=== PATIENT | female | born 1965 | race Caucasian/White ===

== ENCOUNTER 2019-12-22 16:22 | Outpatient (REF) | payer OTHER, SELFPAY | END 2019-12-22 16:23 | disposition home or self-care (01) | LOC: HO.LNP 16:22 | PROVIDERS: Visit Provider Internal Medicine | DX: Z20.828 Contact with and (suspected) exposure to other viral communicable diseases (principal) | CPT/HCPCS: U0003 ==

== ENCOUNTER 2021-05-05 16:10 | Outpatient (REF) | payer OTHER, SELFPAY ==
--- NOTE | ~2021-05-05 | MM_ITS ---
EXAMINATION: MM SCREENING DIGITAL BREAST TOMOSYNTHESIS, BILATERAL CLINICAL INFORMATION: Screening. Asymptomatic. The lifetime risk of breast cancer based on the Tyrer-Cuzick Model is 25.6%. Additional annual screening with breast MRI may be of benefit in women with a score of 20% or greater. COMPARISON: Mammography: April 26, 2019 and studies dating back to August 07, 2008 TECHNIQUE: Digital breast tomosynthesis is performed in both the craniocaudal and mediolateral oblique views along with computer-aided detection (CAD). Synthesized 2D images are generated from the tomosynthesis. FINDINGS: There are scattered areas of fibroglandular density (ACR BI-RADS breast composition Category b). There are no significant masses, abnormal calcifications, or other abnormalities. MM/MM tomosynthesis screening BI IMPRESSION: There are no significant changes from prior study. ASSESSMENT: BI-RADS 1: Negative RECOMMENDATION: Routine annual mammography screening. This patient's information was entered into a reminder system with a target due date for their next mammogram.
== END 2021-05-05 16:11 | disposition home or self-care (01) ==
LOC: HO.MAMMO 16:10
PROVIDERS: Visit Provider Physician Assistant
DX: Z12.31 Encounter for screening mammogram for malignant neoplasm of breast (principal)
CPT/HCPCS: 77063; 77067

== ENCOUNTER 2022-04-30 15:30 | Outpatient (RCR) | payer OTHER, SELFPAY ==
--- NOTE | 2022-01-14 21:07 | P.CONTMS_ITS ---
History of Present Illness General Data Date of Service: 01/14/22 Reason for consult: [facility] History of Present Illness Patient is a 56-year-old female history of recurrent depression referred for retreatment with TMS. Current PHQ-9 19. Patient has treatment resistant depression she sees Dr. Zamora in individual counseling through the [facility] and Dr. Escoto at the [facility]. 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. She works on the TBI unit 20 mg daily levothyroxine 100 mcg daily atenolol 50 mg daily aspirin 81 mg a day. Patient noted for the original treatment or motivation energy crease pleasure feeling more alive. She notes recently more anxiety dysphoria feeling stressed overwhelmed difficulty functioning except for going to work. Patient currently on Trintellix 20 mg daily levothyroxine 100 mcg daily atenolol 50 mg daily the patient has a history of fibromyalgia hypothyroidism generalized anxiety disorder recurrent depression history of paroxysmal atrial fibrillation Past Psychiatric History/Medication Trials: History of multiple failures including antidepressants antipsychotics FOR[facility]LY [facility], [facility] Medical History (Updated 05/18/21 @ 17:27 by Power Finley MD) Generalized anxiety disorder Hypothyroidism Paroxysmal A-fib Family History: Who history of recurrent depression on her mother's side of family sister with bipolar disorder Social History: Patient is x2 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 does have some close friends Substance History: Intermittent heavy alcohol use no blackouts Trauma History: none noted Meds/Allergies Allergies Allergies Allergy/AdvReac Type Severity Reaction Status Date / Time No Known Allergies Allergy Unverified 11/02/19 15:09 [No Known Allergies*] Mental Status Exam Mental Status Exam Patient Appearance: Well Grooomed Patient Orientation: Person, Place and Situation Level of Consciousness: Awake Patient Behavior: Appropriate and Cooperative Mood Description: Depressed, Anxious and Apprehensive Affect Description: Depressed and Anxious Patient Cognition Impaired: No Ability to Follow Directions: Excellent Speech Pattern: Clear Memory Description: Intact Hallucinations: None Thought Process: Intact Thought Content: negative for Suicidal Ideation or negative for Homicidal Ideati on Depressive Symptoms: Increased Anxiety, Loss of Int. in Activity, Feelings of Worthlessness, Increased Fatigue, Loss of Energy and Difficulty Concentrating Judgement: Good Assessment & Plan Assessment & Plan (1) Depression, major, severe recurrence: Status: Acute Code(s): F33.2 - Major depressive disorder, recurrent severe without psychotic features (2) Generalized anxiety disorder: Status: Acute Code(s): F41.1 - Generalized anxiety disorder Plan The patient has a history of treatment resistant depression mood anxious and dysphoric had an excellent response to original course of TMS treatment without any significant side effects. No contraindications TMS new pacemaker metallic objects the patient would benefit from retreatment I spent __45____ minutes with the patient and/or on the patient floor today, greater than?50% of which was spent counseling/coordinating care.
--- NOTE | 2022-01-21 13:05 | HO.TMSDAILY2 ---
TMS Daily Progress Note Daily TMS Progress Note Date of Service: 01/21/22 Week #: 1 Treatment #(03-16): 1 PHQ-9 Pre-Treatment (03-13): 19 PHQ-9 Most Recent (03-13): 19 Reviewed: TMS Mapping/Re-mapping completed Verification: I have reviewed the TMS Jd Edwards Developer Note and agree with the contents. The patient remains a candidate to continue TMS treatment per protocol. Assessment and Plan (1) Depression, major, severe recurrence: Status: Acute (2) Generalized anxiety disorder: Status: Acute Plan Patient cooperative initial mapping completed no significant difficulty noted risks benefits alternatives have been reviewed informed consent obtained
--- NOTE | 2022-02-19 14:21 | HO.TMSDAILY2 ---
TMS Daily Progress Note Daily TMS Progress Note Date of Service: 01/22/22 Week #: 1 Treatment #(03-16): 2 PHQ-9 Pre-Treatment (03-13): 19 PHQ-9 Most Recent (03-13): 19 Reviewed: TMS Tech Note Reviewed Verification: I have reviewed the TMS Drug Safety Coordinator Note and agree with the contents. The patient remains a candidate to continue TMS treatment per protocol. Assessment and Plan (1) Depression, major, severe recurrence: Status: Acute (2) Generalized anxiety disorder: Status: Acute Plan tx completed Time Spent With Patient Time: Total time managing care of this patient today ____ minutes.
--- NOTE | 2022-02-19 14:29 | HO.TMSDAILY2 ---
TMS Daily Progress Note Daily TMS Progress Note Date of Service: 01/23/22 Week #: 1 Treatment #(03-16): 3 PHQ-9 Pre-Treatment (03-13): 19 PHQ-9 Most Recent (03-13): 19 Reviewed: TMS Tech Note Reviewed Verification: I have reviewed the TMS Air Conditioning Specialist Note and agree with the contents. The patient remains a candidate to continue TMS treatment per protocol. Assessment and Plan Time Spent With Patient Time: Total time managing care of this patient today ____ minutes.
--- NOTE | 2022-02-19 14:32 | HO.TMSDAILY2 ---
TMS Daily Progress Note Daily TMS Progress Note Date of Service: 01/26/22 Week #: 1 Treatment #(03-16): 4 PHQ-9 Pre-Treatment (03-13): 19 PHQ-9 Most Recent (03-13): 19 Reviewed: TMS Tech Note Reviewed Verification: I have reviewed the TMS Rock Crusher Operator Note and agree with the contents. The patient remains a candidate to continue TMS treatment per protocol. Assessment and Plan Time Spent With Patient Time: Total time managing care of this patient today ____ minutes.
--- NOTE | 2022-02-19 14:34 | P.PNPS_ITS ---
TMS Daily Progress Note Daily TMS Progress Note Date of Service: 01/27/22 Week #: 1 Treatment #(03-16): 5 PHQ-9 Pre-Treatment (03-13): 19 PHQ-9 Most Recent (03-13): 19 Reviewed: TMS Tech Note Reviewed Verification: I have reviewed the TMS Chemical Engineering Professor Note and agree with the contents. The patient remains a candidate to continue TMS treatment per protocol. Assessment and Plan (1) Depression, major, severe recurrence: Status: Acute (2) Generalized anxiety disorder: Status: Acute Plan tolerating well Time Spent With Patient Time: Total time managing care of this patient today ____ minutes.
--- NOTE | 2022-02-19 14:36 | P.PNPS_ITS ---
TMS Daily Progress Note Daily TMS Progress Note Date of Service: 01/28/22 Week #: 2 Treatment #(03-16): 6 PHQ-9 Pre-Treatment (03-13): 19 PHQ-9 Most Recent (03-13): 19 Reviewed: TMS Tech Note Reviewed Verification: I have reviewed the TMS Heel Cover Splitter Note and agree with the contents. The patient remains a candidate to continue TMS treatment per protocol. Assessment and Plan Time Spent With Patient Time: Total time managing care of this patient today ____ minutes.
--- NOTE | 2022-02-19 14:37 | HO.TMSDAILY2 ---
TMS Daily Progress Note Daily TMS Progress Note Date of Service: 01/30/22 Week #: 2 Treatment #(03-16): 7 PHQ-9 Pre-Treatment (03-13): 19 PHQ-9 Most Recent (03-13): 19 Reviewed: TMS Tech Note Reviewed Verification: I have reviewed the TMS Conveyor System Dispatcher Note and agree with the contents. The patient remains a candidate to continue TMS treatment per protocol. Assessment and Plan (1) Depression, major, severe recurrence: Status: Acute (2) Generalized anxiety disorder: Status: Acute Plan cont tx plan Time Spent With Patient Time: Total time managing care of this patient today ____ minutes.
--- NOTE | 2022-02-19 14:38 | HO.TMSDAILY2 ---
TMS Daily Progress Note Daily TMS Progress Note Date of Service: 01/30/22 Week #: 2 Treatment #(03-16): 7 PHQ-9 Pre-Treatment (03-13): 19 PHQ-9 Most Recent (03-13): 19 Reviewed: TMS Tech Note Reviewed Verification: I have reviewed the TMS Deep Fat Fry Cook Note and agree with the contents. The patient remains a candidate to continue TMS treatment per protocol. Assessment and Plan Time Spent With Patient Time: Total time managing care of this patient today ____ minutes.
--- NOTE | 2022-02-19 14:41 | P.PNPS_ITS ---
TMS Daily Progress Note Daily TMS Progress Note Date of Service: 02/04/22 Week #: 2 Treatment #(03-16): 9 PHQ-9 Pre-Treatment (03-13): 19 PHQ-9 Most Recent (03-13): 19 Reviewed: TMS Tech Note Reviewed Verification: I have reviewed the TMS Academic Department Chair Note and agree with the contents. The patient remains a candidate to continue TMS treatment per protocol. Assessment and Plan (1) Depression, major, severe recurrence: Status: Acute (2) Generalized anxiety disorder: Status: Acute Plan cont tx plan Time Spent With Patient Time: Total time managing care of this patient today ____ minutes.
--- NOTE | 2022-02-19 14:43 | P.PNPS_ITS ---
TMS Daily Progress Note Daily TMS Progress Note Date of Service: 02/04/22 Week #: 2 Treatment #(03-16): 9 PHQ-9 Pre-Treatment (03-13): 19 PHQ-9 Most Recent (03-13): 19 Reviewed: TMS Tech Note Reviewed Verification: I have reviewed the TMS Physician Representative Note and agree with the contents. The patient remains a candidate to continue TMS treatment per protocol. Assessment and Plan Time Spent With Patient Time: Total time managing care of this patient today ____ minutes.
--- NOTE | 2022-02-19 14:44 | HO.TMSDAILY2 ---
TMS Daily Progress Note Daily TMS Progress Note Date of Service: 02/05/22 Week #: 2 Treatment #(03-16): 10 PHQ-9 Pre-Treatment (03-13): 19 PHQ-9 Most Recent (03-13): 19 Reviewed: TMS Tech Note Reviewed Verification: I have reviewed the TMS Back Roll Lathe Operator Note and agree with the contents. The patient remains a candidate to continue TMS treatment per protocol. Assessment and Plan (1) Depression, major, severe recurrence: Status: Acute (2) Generalized anxiety disorder: Status: Acute Plan Tolerating well continue plan of care Time Spent With Patient Time: Total time managing care of this patient today ____ minutes.
--- NOTE | 2022-02-19 14:49 | P.PNPS_ITS ---
TMS Daily Progress Note Daily TMS Progress Note Date of Service: 02/06/22 Week #: 3 Treatment #(03-16): 11 PHQ-9 Pre-Treatment (03-13): 19 PHQ-9 Most Recent (03-13): 15 Reviewed: TMS Tech Note Reviewed Verification: I have reviewed the TMS Apprentice Painter Neckties Note and agree with the contents. The patient remains a candidate to continue TMS treatment per protocol. Assessment and Plan (1) Depression, major, severe recurrence: Status: Acute (2) Generalized anxiety disorder: Status: Acute Plan Tolerating well continue plan of care Time Spent With Patient Time: Total time managing care of this patient today ____ minutes.
--- NOTE | 2022-02-19 14:51 | HO.TMSDAILY2 ---
TMS Daily Progress Note Daily TMS Progress Note Date of Service: 02/10/22 Week #: 3 Treatment #(03-16): 12 PHQ-9 Pre-Treatment (03-13): 19 PHQ-9 Most Recent (03-13): 15 Reviewed: TMS Tech Note Reviewed Verification: I have reviewed the TMS Industrial Methods Consultant Note and agree with the contents. The patient remains a candidate to continue TMS treatment per protocol. Assessment and Plan (1) Depression, major, severe recurrence: Status: Acute (2) Generalized anxiety disorder: Status: Acute Plan Tolerating well continue plan of care Time Spent With Patient Time: Total time managing care of this patient today ____ minutes.
--- NOTE | 2022-02-26 10:21 | P.PNPS_ITS ---
TMS Daily Progress Note Daily TMS Progress Note Date of Service: 02/12/22 Week #: 3 Treatment #(03-16): 13 PHQ-9 Pre-Treatment (03-13): 19 PHQ-9 Most Recent (03-13): 15 Reviewed: TMS Tech Note Reviewed Verification: I have reviewed the TMS Company Laundry Worker Note and agree with the contents. The patient remains a candidate to continue TMS treatment per protocol.Pt talkative engaged Assessment and Plan (1) Depression, major, severe recurrence: Status: Acute (2) Generalized anxiety disorder: Status: Acute Plan Tolerating well continue plan of care engaged with tx Time Spent With Patient Time: Total time managing care of this patient today ____ minutes.
--- NOTE | 2022-02-26 10:33 | P.PNPS_ITS ---
TMS Daily Progress Note Daily TMS Progress Note Date of Service: 02/13/22 Week #: 3 Treatment #(03-16): 14 PHQ-9 Pre-Treatment (03-13): 19 PHQ-9 Most Recent (03-13): 11 Reviewed: TMS Tech Note Reviewed Verification: I have reviewed the TMS Buzzsaw Operator Helper Note and agree with the contents. The patient remains a candidate to continue TMS treatment per protocol. Assessment and Plan (1) Depression, major, severe recurrence: Status: Acute (2) Generalized anxiety disorder: Status: Acute Plan Tolerating well continue plan of care engaged with tx some increased anxiety may be related to medical illness with uncle Time Spent With Patient Time: Total time managing care of this patient today ____ minutes.
--- NOTE | 2022-02-26 10:40 | P.PNPS_ITS ---
TMS Daily Progress Note Daily TMS Progress Note Date of Service: 02/17/22 Week #: 3 Treatment #(03-16): 15 PHQ-9 Pre-Treatment (03-13): 19 PHQ-9 Most Recent (03-13): 11 Reviewed: TMS Tech Note Reviewed Verification: I have reviewed the TMS Courseware Developer Note and agree with the contents. The patient remains a candidate to continue TMS treatment per protocol. Assessment and Plan (1) Depression, major, severe recurrence: Status: Acute (2) Generalized anxiety disorder: Status: Acute Plan Patient feeling under lot of stress number of situational factors Time Spent With Patient Time: Total time managing care of this patient today ____ minutes.
--- NOTE | 2022-02-26 10:53 | HO.TMSDAILY2 ---
TMS Daily Progress Note Daily TMS Progress Note Date of Service: 02/18/22 Week #: 4 Treatment #(03-16): 16 PHQ-9 Pre-Treatment (03-13): 19 PHQ-9 Most Recent (03-13): 16 Reviewed: TMS Tech Note Reviewed Verification: I have reviewed the TMS Health Assessment And Treatment Teacher Note and agree with the contents. The patient remains a candidate to continue TMS treatment per protocol. Assessment and Plan (1) Depression, major, severe recurrence: Status: Acute (2) Generalized anxiety disorder: Status: Acute Plan Patient feeling under lot of stress number of situational factors PHQ 9 appears to be going up along with anxiety Time Spent With Patient Time: Total time managing care of this patient today ____ minutes.
--- NOTE | 2022-02-26 10:59 | HO.TMSDAILY2 ---
TMS Daily Progress Note Daily TMS Progress Note Date of Service: 02/19/22 Week #: 4 Treatment #(03-16): 17 PHQ-9 Pre-Treatment (03-13): 19 PHQ-9 Most Recent (03-13): 16 Reviewed: TMS Tech Note Reviewed Verification: I have reviewed the TMS Medical Coding Auditor Note and agree with the contents. The patient remains a candidate to continue TMS treatment per protocol. [place] somewhat better today continue plan of care consider re mapping Assessment and Plan Time Spent With Patient Time: Total time managing care of this patient today ____ minutes.
--- NOTE | 2022-02-26 11:01 | HO.TMSDAILY2 ---
TMS Daily Progress Note Daily TMS Progress Note Date of Service: 02/20/22 Week #: 4 Treatment #(03-16): 18 PHQ-9 Pre-Treatment (03-13): 19 PHQ-9 Most Recent (03-13): 16 Reviewed: TMS Tech Note Reviewed Verification: I have reviewed the TMS Validation Scientist Note and agree with the contents. The patient remains a candidate to continue TMS treatment per protocol.Pt Assessment and Plan Time Spent With Patient Time: Total time managing care of this patient today ____ minutes.
--- NOTE | 2022-02-26 11:06 | P.PNPS_ITS ---
TMS Daily Progress Note Daily TMS Progress Note Date of Service: 02/24/22 Week #: 4 Treatment #(03-16): 19 PHQ-9 Pre-Treatment (03-13): 19 PHQ-9 Most Recent (03-13): 12 Reviewed: TMS Tech Note Reviewed Verification: I have reviewed the TMS Tube And Manifold Builder Note and agree with the contents. The patient remains a candidate to continue TMS treatment per protocol. Assessment and Plan (1) Depression, major, severe recurrence: Status: Acute (2) Generalized anxiety disorder: Status: Acute Plan PHQ-9 appears to be going down again Time Spent With Patient Time: Total time managing care of this patient today ____ minutes.
--- NOTE | 2022-02-26 11:08 | P.PNPS_ITS ---
TMS Daily Progress Note Daily TMS Progress Note Date of Service: 02/25/22 Week #: 4 Treatment #(03-16): 20 PHQ-9 Pre-Treatment (03-13): 19 PHQ-9 Most Recent (03-13): 12 Reviewed: TMS Tech Note Reviewed Verification: I have reviewed the TMS Curam Developer Note and agree with the contents. The patient remains a candidate to continue TMS treatment per protocol. Assessment and Plan (1) Depression, major, severe recurrence: Status: Acute (2) Generalized anxiety disorder: Status: Acute Plan PHQ-9 appears to be going down again tolerating treatment feeling somewhat better Time Spent With Patient Time: Total time managing care of this patient today ____ minutes.
--- NOTE | 2022-02-26 11:12 | HO.TMSDAILY2 ---
TMS Daily Progress Note Daily TMS Progress Note Date of Service: 02/26/22 Week #: 5 Treatment #(03-16): 21 PHQ-9 Pre-Treatment (03-13): 19 PHQ-9 Most Recent (03-13): 12 Reviewed: TMS Tech Note Reviewed Verification: I have reviewed the TMS Loom Fixer Supervisor Note and agree with the contents. The patient remains a candidate to continue TMS treatment per protocol. Continue plan of care seems on the upswing again Assessment and Plan Time Spent With Patient Time: Total time managing care of this patient today ____ minutes.
--- NOTE | 2022-03-16 15:30 | P.PNPS_ITS ---
TMS Daily Progress Note Daily TMS Progress Note Date of Service: 03/16/22 Week #: 7 Treatment #(03-16): 31 PHQ-9 Pre-Treatment (03-13): 19 PHQ-9 Most Recent (03-13): 12 Reviewed: TMS Tech Note Reviewed Verification: I have reviewed the TMS Ophthalmic Assistant Note and agree with the contents. The patient remains a candidate to continue TMS treatment per protocol. Assessment and Plan Time Spent With Patient Time: Total time managing care of this patient today ____ minutes.
--- NOTE | 2022-03-18 12:30 | HO.TMSDAILY2 ---
TMS Daily Progress Note Daily TMS Progress Note Date of Service: 03/18/22 Week #: 7 Treatment #(03-16): 32 PHQ-9 Pre-Treatment (03-13): 19 PHQ-9 Most Recent (03-13): 12 Reviewed: TMS Tech Note Reviewed Verification: I have reviewed the TMS Acquisitions Librarian Note and agree with the contents. The patient remains a candidate to continue TMS treatment per protocol. Assessment and Plan Time Spent With Patient Time: Total time managing care of this patient today ____ minutes.
--- NOTE | 2022-03-18 23:18 | P.PNPS_ITS ---
TMS Daily Progress Note Daily TMS Progress Note Date of Service: 03/13/22 Week #: 6 Treatment #(03-16): 30 PHQ-9 Pre-Treatment (03-13): 19 PHQ-9 Most Recent (03-13): 12 Reviewed: TMS Tech Note Reviewed Verification: I have reviewed the TMS Packaging Operator Note and agree with the contents. The patient remains a candidate to continue TMS treatment per protocol. Assessment and Plan Time Spent With Patient Time: Total time managing care of this patient today ____ minutes.
--- NOTE | 2022-03-18 23:24 | P.PNPS_ITS ---
TMS Daily Progress Note Daily TMS Progress Note Date of Service: 03/13/22 Week #: 6 Treatment #(03-16): 30 PHQ-9 Pre-Treatment (03-13): 19 PHQ-9 Most Recent (03-13): 12 Reviewed: TMS Tech Note Reviewed Verification: I have reviewed the TMS Foreclosure Home Inspector Note and agree with the contents. The patient remains a candidate to continue TMS treatment per protocol. Assessment and Plan Time Spent With Patient Time: Total time managing care of this patient today ____ minutes.
--- NOTE | 2022-03-20 16:28 | HO.TMSDAILY2 ---
TMS Daily Progress Note Daily TMS Progress Note Date of Service: 03/20/22 Week #: 7 Treatment #(03-16): 33 PHQ-9 Pre-Treatment (03-13): 19 PHQ-9 Most Recent (03-13): 12 Reviewed: TMS Tech Note Reviewed Verification: I have reviewed the TMS Children Teacher Note and agree with the contents. The patient remains a candidate to continue TMS treatment per protocol. Assessment and Plan Time Spent With Patient Time: Total time managing care of this patient today ____ minutes.
--- NOTE | 2022-03-30 10:53 | P.PNPS_ITS ---
TMS Daily Progress Note Daily TMS Progress Note Date of Service: 02/27/22 Week #: 5 Treatment #(03-16): 22 PHQ-9 Pre-Treatment (03-13): 19 PHQ-9 Most Recent (03-13): 12 Reviewed: TMS Tech Note Reviewed Verification: I have reviewed the TMS Statistician Theoretical Note and agree with the contents. The patient remains a candidate to continue TMS treatment per protocol. Assessment and Plan (1) Depression, major, severe recurrence: Status: Acute (2) Generalized anxiety disorder: Status: Acute Plan continue tx plan doing better generally Time Spent With Patient Time: Total time managing care of this patient today ____ minutes.
--- NOTE | 2022-03-30 11:04 | P.PNPS_ITS ---
TMS Daily Progress Note Daily TMS Progress Note Date of Service: 03/06/22 Week #: 6 Treatment #(03-16): 26 PHQ-9 Pre-Treatment (03-13): 19 PHQ-9 Most Recent (03-13): 12 Reviewed: TMS Tech Note Reviewed Verification: I have reviewed the TMS Cherry Pitter Note and agree with the contents. The patient remains a candidate to continue TMS treatment per protocol. Assessment and Plan (1) Depression, major, severe recurrence: Status: Acute (2) Generalized anxiety disorder: Status: Acute Plan Pt generally doing better no c/o side effects Time Spent With Patient Time: Total time managing care of this patient today ____ minutes.
--- NOTE | 2022-03-30 11:04 | P.PNPS_ITS ---
TMS Daily Progress Note Daily TMS Progress Note Date of Service: 03/05/22 Week #: 5 Treatment #(03-16): 25 PHQ-9 Pre-Treatment (03-13): 19 PHQ-9 Most Recent (03-13): 12 Reviewed: TMS Tech Note Reviewed Verification: I have reviewed the TMS Meter Changes Records Clerk Note and agree with the contents. The patient remains a candidate to continue TMS treatment per protocol. Assessment and Plan (1) Depression, major, severe recurrence: Status: Acute (2) Generalized anxiety disorder: Status: Acute Plan continue plan of care pt improved qol Time Spent With Patient Time: Total time managing care of this patient today ____ minutes.
--- NOTE | 2022-03-30 11:04 | P.PNPS_ITS ---
TMS Daily Progress Note Daily TMS Progress Note Date of Service: 03/03/22 Week #: 5 Treatment #(03-16): 24 PHQ-9 Pre-Treatment (03-13): 19 PHQ-9 Most Recent (03-13): 12 Reviewed: TMS Tech Note Reviewed Verification: I have reviewed the TMS Glove Turner And Former Automatic Note and agree with the contents. The patient remains a candidate to continue TMS treatment per protocol. Assessment and Plan (1) Depression, major, severe recurrence: Status: Acute (2) Generalized anxiety disorder: Status: Acute Plan Doing well no c/o side effects Time Spent With Patient Time: Total time managing care of this patient today ____ minutes.
--- NOTE | 2022-03-30 11:04 | P.PNPS_ITS ---
TMS Daily Progress Note Daily TMS Progress Note Date of Service: 03/02/22 Week #: 5 Treatment #(03-16): 23 PHQ-9 Pre-Treatment (03-13): 19 PHQ-9 Most Recent (03-13): 12 Reviewed: TMS Tech Note Reviewed Verification: I have reviewed the TMS Packing Machine Can Feeder Note and agree with the contents. The patient remains a candidate to continue TMS treatment per protocol. Assessment and Plan (1) Depression, major, severe recurrence: Status: Acute (2) Generalized anxiety disorder: Status: Acute Plan No adverse effects noted. Improvement noted. Time Spent With Patient Time: Total time managing care of this patient today ____ minutes.
--- NOTE | 2022-03-30 11:26 | P.PNPS_ITS ---
TMS Daily Progress Note Daily TMS Progress Note Date of Service: 03/09/22 Week #: 6 Treatment #(03-16): 27 PHQ-9 Pre-Treatment (03-13): 19 PHQ-9 Most Recent (03-13): 12 Reviewed: TMS Tech Note Reviewed Verification: I have reviewed the TMS Senior Solutions Engineer Note and agree with the contents. The patient remains a candidate to continue TMS treatment per protocol. Assessment and Plan (1) Depression, major, severe recurrence: Status: Acute (2) Generalized anxiety disorder: Status: Acute Plan Pt generally doing better no c/o side effects Time Spent With Patient Time: Total time managing care of this patient today ____ minutes.
--- NOTE | 2022-03-30 12:38 | P.PNPS_ITS ---
TMS Daily Progress Note Daily TMS Progress Note Date of Service: 03/10/22 Week #: 6 Treatment #(03-16): 28 PHQ-9 Pre-Treatment (03-13): 19 PHQ-9 Most Recent (03-13): 7 Reviewed: TMS Tech Note Reviewed Verification: I have reviewed the TMS Solar Sales Estimator Note and agree with the contents. The patient remains a candidate to continue TMS treatment per protocol. Assessment and Plan (1) Depression, major, severe recurrence: Status: Acute (2) Generalized anxiety disorder: Status: Acute Plan Pt generally doing better no c/o side effects Time Spent With Patient Time: Total time managing care of this patient today ____ minutes.
--- NOTE | 2022-03-30 12:40 | HO.TMSDAILY2 ---
TMS Daily Progress Note Daily TMS Progress Note Date of Service: 03/11/22 Week #: 6 Treatment #(03-16): 29 PHQ-9 Pre-Treatment (03-13): 19 PHQ-9 Most Recent (03-13): 7 Reviewed: TMS Tech Note Reviewed Verification: I have reviewed the TMS Medical Operations Supervisor Note and agree with the contents. The patient remains a candidate to continue TMS treatment per protocol. Assessment and Plan (1) Depression, major, severe recurrence: Status: Acute (2) Generalized anxiety disorder: Status: Acute Time Spent With Patient Time: Total time managing care of this patient today ____ minutes.
--- NOTE | 2022-03-30 12:40 | HO.TMSDAILY2 ---
TMS Daily Progress Note Daily TMS Progress Note Date of Service: 03/13/22 Week #: 6 Treatment #(03-16): 30 PHQ-9 Pre-Treatment (03-13): 19 PHQ-9 Most Recent (03-13): 7 Reviewed: TMS Tech Note Reviewed Verification: I have reviewed the TMS Excavating Machine Operator Note and agree with the contents. The patient remains a candidate to continue TMS treatment per protocol. Assessment and Plan Time Spent With Patient Time: Total time managing care of this patient today ____ minutes.
--- NOTE | 2022-04-30 20:52 | HO.TMSDAILY2 ---
TMS Daily Progress Note Daily TMS Progress Note Date of Service: 04/30/22 Week #: 10 Treatment #(03-16): 45 PHQ-9 Pre-Treatment (03-13): 10 PHQ-9 Most Recent (03-13): 7 CGI-I Most Recent: 2 = Much Improved Reviewed: TMS Tech Note Reviewed Verification: I have reviewed the TMS Nanoscience Technician Note and agree with the contents. The patient remains a candidate to continue TMS treatment per protocol. Assessment and Plan (1) Depression, major, severe recurrence: Status: Acute (2) Generalized anxiety disorder: Status: Acute Plan Patient seen case reviewed with [facility] Lance Esc[facility] the [facility]. The patient has a history of paroxysmal atrial fibrillation. Has had more over the past few weeks then she has had previously. She is on a beta-marcus and a beta-marcus p.r.n. Dr. Escoto raise the question of whether there could be a connection with TMS treatment patient will be seen by Cardiology there is no immediate increase in heart rate right after TMS literature search has not shown any associated link between TMS and atrial fibrillation. 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 Would probably benefit from Holter monitor the patient is not on anticoagulation except for an aspirin. Unclear what workup she has had in the past. TSH should be checked patient does have thyroid disease will hold off on further TMS at this time and will discuss further with patient and Dr. Escoto Time Spent With Patient Time: Total time managing care of this patient today ____ minutes.
--- NOTE | 2022-05-03 18:16 | HO.TMSDAILY2 ---
TMS Daily Progress Note Daily TMS Progress Note Date of Service: 03/16/22 Week #: 7 Treatment #(03-16): 31 PHQ-9 Pre-Treatment (03-13): 19 PHQ-9 Most Recent (03-13): 10 Reviewed: TMS Tech Note Reviewed Verification: I have reviewed the TMS Assistant Bookkeeper Note and agree with the contents. The patient remains a candidate to continue TMS treatment per protocol. Assessment and Plan (1) Depression, major, severe recurrence: Status: Acute (2) Generalized anxiety disorder: Status: Acute Plan Patient generally improved Time Spent With Patient Time: Total time managing care of this patient today ____ minutes.
--- NOTE | 2022-05-03 18:18 | HO.TMSDAILY2 ---
TMS Daily Progress Note Daily TMS Progress Note Date of Service: 03/25/22 Week #: 8 Treatment #(03-16): 34 PHQ-9 Pre-Treatment (03-13): 19 PHQ-9 Most Recent (03-13): 7 Reviewed: TMS Tech Note Reviewed Verification: I have reviewed the TMS Assistant Professor Of Psychology Note and agree with the contents. The patient remains a candidate to continue TMS treatment per protocol. Assessment and Plan (1) Depression, major, severe recurrence: Status: Acute (2) Generalized anxiety disorder: Status: Acute Plan Patient generally improved Time Spent With Patient Time: Total time managing care of this patient today ____ minutes.
--- NOTE | 2022-05-03 18:22 | P.PNPS_ITS ---
TMS Daily Progress Note Daily TMS Progress Note Date of Service: 03/27/22 Week #: 8 Treatment #(03-16): 35 PHQ-9 Pre-Treatment (03-13): 19 PHQ-9 Most Recent (03-13): 7 CGI-I Most Recent: 2 = Much Improved Reviewed: TMS Tech Note Reviewed Verification: I have reviewed the TMS Psych Sales Specialist Note and agree with the contents. The patient remains a candidate to continue TMS treatment per protocol. Assessment and Plan (1) Depression, major, severe recurrence: Status: Acute (2) Generalized anxiety disorder: Status: Acute Plan Patient generally improved Time Spent With Patient Time: Total time managing care of this patient today ____ minutes.
--- NOTE | 2022-05-03 18:24 | P.PNPS_ITS ---
TMS Daily Progress Note Daily TMS Progress Note Date of Service: 03/31/22 Week #: 8 Treatment #(03-16): 36 PHQ-9 Pre-Treatment (03-13): 19 PHQ-9 Most Recent (03-13): 7 CGI-I Most Recent: 2 = Much Improved Reviewed: TMS Tech Note Reviewed Verification: I have reviewed the TMS Classification And Treatment Director Note and agree with the contents. The patient remains a candidate to continue TMS treatment per protocol. Assessment and Plan (1) Depression, major, severe recurrence: Status: Acute (2) Generalized anxiety disorder: Status: Acute Plan Patient is reached 36 treatment session clear improvement. However patient has had greater improvement in the past was hopeful that she would have more improvement in anxiety irritability she does have much rizvi range of affect discussion about extended treatment option will review [facility] patient seen discussed treatment options Time Spent With Patient Time: Total time managing care of this patient today ____ minutes.
--- NOTE | 2022-05-03 18:27 | HO.TMSDAILY2 ---
TMS Daily Progress Note Daily TMS Progress Note Date of Service: 04/20/22 Week #: 9 Treatment #(03-16): 38 PHQ-9 Pre-Treatment (03-13): 10 PHQ-9 Most Recent (03-13): 11 CGI-I Most Recent: 2 = Much Improved Reviewed: TMS Tech Note Reviewed Verification: I have reviewed the TMS Doctor Of Optometry Note and agree with the contents. The patient remains a candidate to continue TMS treatment per protocol. Assessment and Plan (1) Depression, major, severe recurrence: Status: Acute (2) Generalized anxiety disorder: Status: Acute Plan Patient returns for extended treatment course approved by the ID literature showing some patient's do better with extended treatment course and then will try extended taper patient has had a significant improvement no significant side effects from TMS patient feeling generally much more stable Time Spent With Patient Time: Total time managing care of this patient today ____ minutes.
--- NOTE | 2022-05-03 18:41 | HO.TMSDAILY2 ---
TMS Daily Progress Note Daily TMS Progress Note Date of Service: 04/21/22 Week #: 9 Treatment #(03-16): 39 PHQ-9 Pre-Treatment (03-13): 10 PHQ-9 Most Recent (03-13): 11 CGI-I Most Recent: 2 = Much Improved Reviewed: TMS Tech Note Reviewed Verification: I have reviewed the TMS Hydrogen Braze Furnace Operator Note and agree with the contents. The patient remains a candidate to continue TMS treatment per protocol. Assessment and Plan (1) Depression, major, severe recurrence: Status: Acute (2) Generalized anxiety disorder: Status: Acute Plan Continue plan of care extended treatment series Time Spent With Patient Time: Total time managing care of this patient today ____ minutes.
--- NOTE | 2022-05-03 18:43 | HO.TMSDAILY2 ---
TMS Daily Progress Note Daily TMS Progress Note Date of Service: 04/22/22 Week #: 9 Treatment #(03-16): 40 PHQ-9 Pre-Treatment (03-13): 10 PHQ-9 Most Recent (03-13): 11 CGI-I Most Recent: 2 = Much Improved Reviewed: TMS Tech Note Reviewed Verification: I have reviewed the TMS Online Banking Specialist Note and agree with the contents. The patient remains a candidate to continue TMS treatment per protocol. Assessment and Plan Time Spent With Patient Time: Total time managing care of this patient today ____ minutes.
--- NOTE | 2022-05-03 18:44 | P.PNPS_ITS ---
TMS Daily Progress Note Daily TMS Progress Note Date of Service: 04/23/22 Week #: 9 Treatment #(03-16): 41 PHQ-9 Pre-Treatment (03-13): 10 PHQ-9 Most Recent (03-13): 11 CGI-I Most Recent: 2 = Much Improved Reviewed: TMS Tech Note Reviewed Verification: I have reviewed the TMS Class B Truck Driver Note and agree with the contents. The patient remains a candidate to continue TMS treatment per protocol. Assessment and Plan (1) Depression, major, severe recurrence: Status: Acute (2) Generalized anxiety disorder: Status: Acute Plan Discussed options for extended treatment course Time Spent With Patient Time: Total time managing care of this patient today ____ minutes.
--- NOTE | 2022-05-03 18:47 | P.PNPS_ITS ---
TMS Daily Progress Note Daily TMS Progress Note Date of Service: 04/24/22 Week #: 9 Treatment #(03-16): 42 PHQ-9 Pre-Treatment (03-13): 10 PHQ-9 Most Recent (03-13): 11 CGI-I Most Recent: 2 = Much Improved Reviewed: TMS Tech Note Reviewed Verification: I have reviewed the TMS Manual Arts Therapist Note and agree with the contents. The patient remains a candidate to continue TMS treatment per protocol. Assessment and Plan (1) Depression, major, severe recurrence: Status: Acute (2) Generalized anxiety disorder: Status: Acute Plan Continue plan of care Time Spent With Patient Time: Total time managing care of this patient today ____ minutes.
--- NOTE | 2022-05-03 18:48 | P.PNPS_ITS ---
TMS Daily Progress Note Daily TMS Progress Note Date of Service: 04/27/22 Week #: 10 Treatment #(03-16): 43 PHQ-9 Pre-Treatment (03-13): 10 PHQ-9 Most Recent (03-13): 7 CGI-I Most Recent: 2 = Much Improved Reviewed: TMS Tech Note Reviewed Verification: I have reviewed the TMS Product Safety Engineer Note and agree with the contents. The patient remains a candidate to continue TMS treatment per protocol. Assessment and Plan (1) Depression, major, severe recurrence: Status: Acute (2) Generalized anxiety disorder: Status: Acute Plan Feeling more optimistic somewhat better continue plan of care Time Spent With Patient Time: Total time managing care of this patient today ____ minutes.
--- NOTE | 2022-05-03 18:51 | HO.TMSDAILY2 ---
TMS Daily Progress Note Daily TMS Progress Note Date of Service: 05/03/22 Week #: 10 Treatment #(03-16): 44 PHQ-9 Pre-Treatment (03-13): 10 PHQ-9 Most Recent (03-13): 7 CGI-I Most Recent: 2 = Much Improved Reviewed: TMS Tech Note Reviewed Verification: I have reviewed the TMS Technician Anatomic Pathology Note and agree with the contents. The patient remains a candidate to continue TMS treatment per protocol. Assessment and Plan Time Spent With Patient Time: Total time managing care of this patient today ____ minutes.
== END 2022-07-27 17:15 | disposition home or self-care (01) ==
LOC: HO.PTMS 15:30
PROVIDERS: Visit Provider Psychiatry & Neurology Psychiatry
DX: F33.2 Major depressive disorder, recurrent severe without psychotic features (principal); F41.1 Generalized anxiety disorder
CPT/HCPCS: 90867; 90868; 90869; 99214

== ENCOUNTER → 2022-06-08 08:10 | Outpatient (REF) | payer OTHER, SELFPAY ==
--- NOTE | ~2022-06-08 | NM_ITS ---
Exercise Myocardial perfusion study Indication: Atypical chest pain to evaluate for myocardial ischemia Technique: The patient was brought in for an exercise perfusion study on 06/08/2022. Patient performed exercise as per Juan protocol and was injected 35 mCi of sestamibi was given intravenously one target HR was achieved. Images were obtained using the SPECT gamma camera interlaced with the gating device. Images were obtained in supine position. Resting perfusion study was performed on 06/09/2022. Patient was administered 35 mCi of sestamibi intravenously at rest. Images were then obtained in supine position. Images obtained with and without CT attenuation. Total DLP 168 mGy-cm. Images were processed with the software and compared side to side in short axis, horizontal long axis and vertical long axis views. Findings: The stress perfusion study showed non attenuated images show mildly reduced uptake in the anterolateral wall of the LV myocardium. Remainder of the LV myocardium is normally perfused. There is suggestion of left ventricle hypertrophy. Attenuated images show normal uptake of tracer in all. The gated study shows normal LV systolic function with calculated LVEF of 72%. LV cavity is normal in size. The gated study shows normal systolic wall thickening and contraction of all segments. There is no transient ischemic dilation. Resting study shows non attenuated corrected images normal uptake of tracer in all segments of LV myocardium. Attenuated corrected images show mildly reduced uptake in the septum of the LV.. Gating at rest reveals normal systolic wall motion with ejection fraction at 55%. The findings are consistent with equivocal finding small mildly reversible defect on non attenuated images of the anterolateral wall.. NM/NM angela perf SPECT rest & str Impression: 1. Equivocal mild intensity anterolateral wall ischemia 2. Gated LVEF is 55% 3. Transient ischemic dilatation not present Stress EKG is negative for ischemia
--- NOTE | 2022-06-08 08:14 | CA_ITS ---
Transthoracic Echocardiogram Patient (Last, First, Middle): Rimma Pacheco Linda Gender: Female Date of : 1965 Age: 57 Procedure Date: 06/08/2022 Procedure Type: Transthoracic Echocardiogram Location: OP Height: 175.26 cm Weight: 104.33 kg BSA: 2.19 m2 Heart Rate: bpm BP: 110 / 76 mmHg Landfill Attendant: MADISYN Referring MD: Von Smith MD Symptoms: ATYPICAL CHEST PAIN , HX ALCOHOL ABUSE Study Quality: Adequate ECG Rhythm: Sinus Conclusions: - The left ventricular systolic function is normal. The calculated ejection fraction is 67% by biplane method. - No obvious valvular pathology seen on this study. Findings Left Ventricle Normal left ventricular cavity size. There is mildly increased left ventricular wall thickness. The left ventricular systolic function is normal. The calculated ejection fraction is 67% by biplane method. There is no evidence of regional wall motion abnormalities. Diastolic function is normal for age. LV peak GLS -20.2%. Right Ventricle Normal right ventricular cavity size and systolic function. Atria Both atria are normal in size. Aortic Valve There is a normal trileaflet aortic valve. There is no aortic valve stenosis. There is trace (trivial) aortic valve regurgitation. Mitral Valve There is mild mitral annular calcification. There is no mitral valve regurgitation. There is no mitral valve stenosis. Pulmonic Valve The pulmonic valve is likely normal. Tricuspid Valve There is trace tricuspid valve regurgitation. There is no evidence of pulmonary hypertension. Great Vessels The asc aorta is normal in size. Venous The inferior vena cava is normal in size and collapses greater than 50% with inspiration. Pericardium/Pleural There is no evidence of pericardial effusion. Prior Study Comparison No significant change compared to prior study dated: 01/01/2018. Recommendations, Care & Conclusions No obvious valvular pathology seen on this study. Measurements 2D Linear Measurements IVSd: 1.07 0.6-0.9/0.6-1.0 cm LVIDd: 4.29 3.9-5.3/4.2-5.9 cm LVIDd Index: 1.96 2.4-3.2/2.2-3.1 cm/m2 LVIDs: 2.69 2.0-3.6 cm LVPWd: 1.04 0.7-1.1 cm LA Diam: 3.40 2.7-3.8/3.0-4.0 cm LAIDs Index: 1.55 1.5-2.3 cm/m2 LV Mass: 190.52 67-162/88-224 g LV Mass Index: 86.99 43-95/49-115 g/m2 LVOT Diam: 2.10 3.0+(-)1.3 cm 2D Systolic Function EF 4C: 68.60 >55% EF 2C: 65.40 >55% EF BiP: 67.20 >55% Mitral Valve MV Pk E: 0.90 MV PK A: 0.69 MV Decel Time: 228.00 E/A: 1.30 E'Lateral: 8.70 E'Medial: 6.85 E/E' Med: 13.10 E/E' Lat: 10.30 PHT: 67.00 MVA PHT: 3.28 Decel Schuyler: 3.93 Aortic Valve AoV Pk Ziyad: 1.37 AoV Mn Ziyad: 0.98 AoV VTI: 0.34 AoV Pk Grad: 8.00 Aov Mn Grad: 4.00 SARY Cont.VTI: 2.88 LVOT LVOT Pk Ziyad: 1.24 LVOT Mn Ziyad: 0.74 LVOT VTI: 0.28 LVOT Pk Grad: 6.00 LVOT Mn Grad: 3.00 LVOT Diam: 2.10 LVOT Area: 3.46 Diastolic Function MV Pk E: 0.90 MV Pk A: 0.69 E/A: 1.30 E'Medial: 6.85 E/E' Med: 13.10 E' Laterial: 8.70 E/E' Lat: 10.30 Right Ventricle TAPSE (mm): 27.70 TVS' Ziyad: 11.40 Tricuspid Valve TR Pk Ziyad: 2.26 TR Pk Grad: 20.00 RA Press: 3.00 RVSP: 23.00 Great Vessels Aorta Sinus of Valsalva: 3.72 2.0-3.[address] Ridge: 2.98 1.7-3.4 cm Ao Asc: 3.40 2.1-3.4 cm Updated in Other Vendor System with Status of Final Daryl Onofre MD electronically signed on 06/08/2022 12:28:27 PM with status of Final
--- NOTE | 2022-06-08 08:17 | CA_ITS ---
Acquisition Time: 2022-06-08 09:50:01 Total Exercise Time: 00:06:31 Test Indications: chest pain Medications: Protocol: KAMLA Max HR: 150 BPM 93% of Pred: 161 BPM Max BP: 128/078 mmHG Max Work Load: 7.3 METS Exercise stress test with exercise 6 min 31 sec of Kamla protocol, achieving 85% MPHR, with moderate sob and leg fatigue, no chest discomfort with isolated PACs and PVCs, in stage 2 one 4 beat NSVT, with normotensive response to exercise, without EKG changes meeting criteria for ischemia. In recovery breathing quickly improved. Nuclear images pending. Test reviewed with Dr Granados Referred By: Von Smith Overread By: CHARBEL ARAUJO
== END ==
LOC: HO.CARD 08:10
PROVIDERS: PCP Physician Assistant; Visit Provider Internal Medicine Cardiovascular Disease
DX: R07.89 Other chest pain (principal); F10.10 Alcohol abuse, uncomplicated; I47.1 Supraventricular tachycardia
CPT/HCPCS: 78452; 93017; 93306; 93356; A9500

== ENCOUNTER 2022-07-27 15:27 | Outpatient (REF) | payer OTHER, SELFPAY ==
--- NOTE | ~2022-07-27 | MM_ITS ---
EXAMINATION: MM SCREENING DIGITAL BREAST TOMOSYNTHESIS, BILATERAL CLINICAL INFORMATION: Screening. Asymptomatic. The lifetime risk of breast cancer based on the Tyrer-Cuzick Model is 21%. COMPARISON: Mammography: 05/05/2021, 04/26/2019, 03/09/2017 TECHNIQUE: Digital breast tomosynthesis is performed in both the craniocaudal and mediolateral oblique views along with computer-aided detection (CAD). Synthesized 2D images are generated from the tomosynthesis. FINDINGS: There are scattered areas of fibroglandular density (ACR BI-RADS breast composition Category b). There are no significant masses, abnormal calcifications, or other abnormalities. Parenchymal pattern is similar to prior studies. There is no developing density or architectural abnormality. The axilla and skin contours are unremarkable. No significant changes. MM/MM tomosynthesis screening BI IMPRESSION: No mammographic evidence of malignancy. ASSESSMENT: BI-RADS 1: Negative RECOMMENDATION: Routine annual mammography screening. This patient's information was entered into a reminder system with a target due date for their next mammogram.
== END 2022-07-27 15:28 | disposition home or self-care (01) ==
LOC: HO.MAMMO 15:27
PROVIDERS: PCP Physician Assistant; Visit Provider Physician Assistant
DX: Z12.31 Encounter for screening mammogram for malignant neoplasm of breast (principal)
CPT/HCPCS: 77063; 77067

== ENCOUNTER → 2022-07-27 17:14 | Outpatient (RCR) | payer OTHER, SELFPAY ==
--- NOTE | 2021-05-14 12:45 | HO.TMSDAILY2 ---
TMS Daily Progress Note Daily TMS Progress Note Date of Service: 05/09/21 Week #: 1 Treatment #(03-16): 1 PHQ-9 Pre-Treatment (03-13): 21 PHQ-9 Most Recent (03-13): 21 Reviewed: TMS Mapping/Re-mapping completed Verification: I have reviewed the TMS Dielectric Press Operator Note and agree with the contents. The patient remains a candidate to continue TMS treatment per protocol. initial mapping completed 05/08 first tx 05/09/21 no difficulty with mapping Assessment and Plan (1) Depression, major, severe recurrence: Status: Acute Plan Patient remains a candidate for TMS initial mapping completed without difficulty
--- NOTE | 2021-05-14 12:46 | P.PNPS_ITS ---
TMS Daily Progress Note Daily TMS Progress Note Date of Service: 05/13/21 Week #: 1 Treatment #(03-16): 3 PHQ-9 Pre-Treatment (03-13): 21 PHQ-9 Most Recent (03-13): 21 Reviewed: TMS Tech Note Reviewed Verification: I have reviewed the TMS Clinic Office Assistant Note and agree with the contents. The patient remains a candidate to continue TMS treatment per protocol. some headache noted cont tx plan may premedicate Assessment and Plan (1) Depression, major, severe recurrence: Status: Acute
--- NOTE | 2021-05-15 13:39 | P.PNPS_ITS ---
TMS Daily Progress Note Daily TMS Progress Note Date of Service: 05/12/21 Week #: 1 Treatment #(03-16): 2 PHQ-9 Pre-Treatment (03-13): 21 PHQ-9 Most Recent (03-13): 21 Reviewed: TMS Tech Note Reviewed Verification: I have reviewed the TMS Training Professional Note and agree with the contents. The patient remains a candidate to continue TMS treatment per protocol. Assessment and Plan (1) Depression, major, severe recurrence: Status: Acute Plan Patient remains a candidate for TMS.
--- NOTE | 2021-05-15 15:00 | P.PNPS_ITS ---
TMS Daily Progress Note Daily TMS Progress Note Date of Service: 05/12/21 Treatment #(03-16): 3 PHQ-9 Pre-Treatment (03-13): 21 PHQ-9 Most Recent (03-13): 21 Verification: I have reviewed the TMS Auto Bench Mechanic Note and agree with the contents. The patient remains a candidate to continue TMS treatment per protocol.
--- NOTE | 2021-05-16 16:08 | P.PNPS_ITS ---
TMS Daily Progress Note Daily TMS Progress Note Date of Service: 05/13/21 Week #: 1 Treatment #(03-16): 3 PHQ-9 Pre-Treatment (03-13): 21 PHQ-9 Most Recent (03-13): 21 Reviewed: TMS Tech Note Reviewed (for dos 05/13/21) Verification: I have reviewed the TMS Residential Assistant Note and agree with the contents. The patient remains a candidate to continue TMS treatment per protocol.
--- NOTE | 2021-05-16 16:14 | P.PNPS_ITS ---
TMS Daily Progress Note Daily TMS Progress Note Date of Service: 05/15/21 Week #: 2 Treatment #(03-16): 6 PHQ-9 Pre-Treatment (03-13): 21 PHQ-9 Most Recent (03-13): 21 Reviewed: TMS Tech Note Reviewed Verification: I have reviewed the TMS Running Specialist Note and agree with the contents. The patient remains a candidate to continue TMS treatment per protocol.
--- NOTE | 2021-05-18 10:28 | P.CONTMS_ITS ---
History of Present Illness General Data Date of Service: 04/24/2021 Reason for consult: tms/ect evaluation/[facility] REF[facility]/DR ESCOTO History of Present Illness The patient is 56-YEAR-OLD female living alone who was referred by Dr. Escoto whom patient sees for psychiatric care at the [facility] in [place]. The patient is referred secondary to medication resistant severe recurrent depression the patient is depressions have been particularly bad since 2014 when she had her father and her sister of breast cancer the next year in 2016. She has also been dealing fibromyalgia which contributes to her depressed mood. She is under financial pressure which has been difficult for her and works at [employer]. The patient also carries a diagnosis of attention deficit hyperactivity disorder and has had periods of heavy drinking. Current medications include and atenolol 50 mg daily levothyroxine 100 mcg daily for hypothyroidism Latuda 20 mg has been tapering down was recently taken off of Trintellix which she had been on at 20 mg she is also on an aspirin a day and vitamin D. The patient's depressive symptoms have increased significantly over the past few weeks with difficulty with irritability depression motivation and energy. She has difficult time taking care of her apartment does continue to work and finds fulfillment [place]. She did have COVID-19 infection and February previous medication trials include fluoxetine This is for consult april 24 2021 [facility] Medical History (Updated 05/18/21 @ 17:27 by Power Finley MD) Generalized anxiety disorder Hypothyroidism Paroxysmal A-fib Narrative: History of hypothyroidism history of paroxysmal atrial fibrillation history of supraventricular tachycardia the patient is on levothyroxine 100 mcg atenolol 50 mg daily aspirin 81 mg daily Patient did have COVID in February 2021 already had fibromyalgia some worsening of symptoms Narrative: History of jaw surgery with titanium states she has been able to have MRI without difficulty Family History: Who history of recurrent depression on her mother's side of family sister with bipolar disorder Social History: Patient is x2 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 Patient admits to feeling increasing depressed helpless hopeless difficulty with motivation energy. Thoughts at times that she would be better alive but denies any plan or intent. She states she last felt okay 10 years ago. Feels like she has been getting worse. Reports problems attention concentration. Denies any manic symptoms no hallucinations or delusional material insight intact impulse control intact Assessment & Plan Assessment & Plan (1) Depression, major, severe recurrence: Status: Acute Code(s): F33.2 - Major depressive disorder, recurrent severe without psychotic features (2) Generalized anxiety disorder: Status: Acute Code(s): F41.1 - Generalized anxiety disorder Plan Patient is a 56-year-old female with a history of treatment resistant depression failed multiple medication [facility]. PHQ-9 21. The patient has long history of clinical depression is affecting her life and functioning. Have also reviewed with patient consideration limiting her heavy drinking during TMS intermittently has 4 drinks night denies withdrawal symptoms or blackouts. Discussed how this could be a contributing factor certainly to her depression. Patient does not have any contraindications to ECT no history of seizure no history of brain surgery no history of brain stents surgery on the skull she did have surgery on her jaw many years ago was reportedly with titanium and has had MRIs since then. Patient requesting treatment with TMS she is an excellent candidate. Reviewed risks benefits alternatives. Patient could be in ECT if does not respond to TMS. Patient does live in [place] this is a convenient treatment location for her. Also discussed augmentation with L methyl folate for medication resistant depression. Patient has also been seen regularly in psychotherapy Meets criteria for TMS treatment. I spent minutes with the patient and/or on the patient floor today, greater than?50% of which was spent counseling/coordinating care. Patient educated on: diagnosis, TMS and therapeutic strategies Informed Consent: understands
--- NOTE | 2021-05-18 16:13 | P.PNPS_ITS ---
TMS Daily Progress Note Daily TMS Progress Note Date of Service: 05/14/21 Week #: 1 Treatment #(03-16): 4 PHQ-9 Pre-Treatment (03-13): 21 PHQ-9 Most Recent (03-13): 21 Reviewed: TMS Tech Note Reviewed Verification: I have reviewed the TMS Broadcast Maintenance Engineer Note and agree with the contents. The patient remains a candidate to continue TMS treatment per protocol.
--- NOTE | 2021-05-18 16:19 | HO.TMSDAILY2 ---
TMS Daily Progress Note Daily TMS Progress Note Date of Service: 05/16/21 Week #: 2 Treatment #(03-16): 6 PHQ-9 Pre-Treatment (03-13): 21 PHQ-9 Most Recent (03-13): 21 Reviewed: TMS Tech Note Reviewed Verification: I have reviewed the TMS Drier Tender Naphthalene Note and agree with the contents. The patient remains a candidate to continue TMS treatment per protocol.
--- NOTE | 2021-05-19 10:07 | P.PNPS_ITS ---
TMS Daily Progress Note Daily TMS Progress Note Date of Service: 05/19/21 Week #: 2 Treatment #(03-16): 7 PHQ-9 Pre-Treatment (03-13): 21 PHQ-9 Most Recent (03-13): 21 Reviewed: TMS Tech Note Reviewed Verification: I have reviewed the TMS Analyst Food And Beverage Note and agree with the contents. The patient remains a candidate to continue TMS treatment per protocol. Assessment and Plan (1) Depression, major, severe recurrence: Status: Acute Plan Continue treatment plan perhaps some improvement noted
--- NOTE | 2021-05-20 13:23 | HO.TMSDAILY2 ---
TMS Daily Progress Note Daily TMS Progress Note Date of Service: 05/20/21 Week #: 2 Treatment #(03-16): 8 PHQ-9 Pre-Treatment (03-13): 21 PHQ-9 Most Recent (03-13): 21 Reviewed: TMS Tech Note Reviewed Verification: I have reviewed the TMS Team Manager Note and agree with the contents. The patient remains a candidate to continue TMS treatment per protocol. Assessment and Plan (1) Depression, major, severe recurrence: Status: Acute Plan Continue treatment plan perhaps some improvement noted
--- NOTE | 2021-05-23 17:32 | HO.TMSDAILY2 ---
TMS Daily Progress Note Daily TMS Progress Note Date of Service: 05/22/21 Week #: 2 Treatment #(03-16): 10 PHQ-9 Pre-Treatment (03-13): 21 PHQ-9 Most Recent (03-13): 21 Reviewed: TMS Tech Note Reviewed Verification: I have reviewed the TMS Supervisor Pigment Making Note and agree with the contents. The patient remains a candidate to continue TMS treatment per protocol. Assessment and Plan (1) Depression, major, severe recurrence: Status: Acute Plan Continue treatment plan improvement noted for 05/22/21
--- NOTE | 2021-05-23 17:34 | HO.TMSDAILY2 ---
TMS Daily Progress Note Daily TMS Progress Note Date of Service: 05/23/21 Week #: 3 Treatment #(03-16): 11 PHQ-9 Pre-Treatment (03-13): 21 PHQ-9 Most Recent (03-13): 12 Reviewed: TMS Tech Note Reviewed Verification: I have reviewed the TMS Metal Mine Inspector Note and agree with the contents. The patient remains a candidate to continue TMS treatment per protocol.
--- NOTE | 2021-05-25 17:10 | HO.TMSDAILY2 ---
TMS Daily Progress Note Daily TMS Progress Note Date of Service: 05/21/21 Week #: 2 Treatment #(03-16): 9 PHQ-9 Pre-Treatment (03-13): 21 PHQ-9 Most Recent (03-13): 21 Reviewed: TMS Tech Note Reviewed Verification: I have reviewed the TMS Card Tape Converter Operator Note and agree with the contents. The patient remains a candidate to continue TMS treatment per protocol. For dos 05/21/21
--- NOTE | 2021-05-26 17:18 | P.PNPS_ITS ---
TMS Daily Progress Note Daily TMS Progress Note Date of Service: 05/26/21 Week #: 3 Treatment #(03-16): 12 PHQ-9 Pre-Treatment (03-13): 21 PHQ-9 Most Recent (03-13): 12 Reviewed: TMS Tech Note Reviewed Verification: I have reviewed the TMS Applied Exercise Physiologist Note and agree with the contents. The patient remains a candidate to continue TMS treatment per protocol.
--- NOTE | 2021-05-27 21:47 | P.PNPS_ITS ---
TMS Daily Progress Note Daily TMS Progress Note Date of Service: 05/27/21 Week #: 3 Treatment #(03-16): 13 PHQ-9 Pre-Treatment (03-13): 21 PHQ-9 Most Recent (03-13): 12 Reviewed: TMS Tech Note Reviewed Verification: I have reviewed the TMS Utility Maintenance Worker Note and agree with the contents. The patient remains a candidate to continue TMS treatment per protocol.
--- NOTE | 2021-05-28 22:56 | P.PNPS_ITS ---
TMS Daily Progress Note Daily TMS Progress Note Date of Service: 05/28/21 Week #: 3 Treatment #(03-16): 14 PHQ-9 Pre-Treatment (03-13): 21 PHQ-9 Most Recent (03-13): 12 Reviewed: TMS Tech Note Reviewed Verification: I have reviewed the TMS Retail Performance Coach Note and agree with the contents. The patient remains a candidate to continue TMS treatment per protocol.
--- NOTE | 2021-06-03 22:17 | P.PNPS_ITS ---
TMS Daily Progress Note Daily TMS Progress Note Date of Service: 06/03/21 Week #: 4 Treatment #(03-16): 17 PHQ-9 Pre-Treatment (03-13): 21 PHQ-9 Most Recent (03-13): 12 Reviewed: TMS Tech Note Reviewed Verification: I have reviewed the TMS Environmental Studies Professor Note and agree with the contents. The patient remains a candidate to continue TMS treatment per protocol.
--- NOTE | 2021-06-04 23:42 | HO.TMSDAILY2 ---
TMS Daily Progress Note Daily TMS Progress Note Date of Service: 06/04/21 Week #: 4 Treatment #(03-16): 18 PHQ-9 Pre-Treatment (03-13): 21 PHQ-9 Most Recent (03-13): 12 Reviewed: TMS Tech Note Reviewed Verification: I have reviewed the TMS Wiper Blender Note and agree with the contents. The patient remains a candidate to continue TMS treatment per protocol. Assessment and Plan (1) Depression, major, severe recurrence: Status: Acute Plan Continue treatment plan
--- NOTE | 2021-06-05 21:29 | HO.TMSDAILY2 ---
TMS Daily Progress Note Daily TMS Progress Note Date of Service: 06/05/21 Week #: 3 Treatment #(03-16): 19 PHQ-9 Pre-Treatment (03-13): 21 PHQ-9 Most Recent (03-13): 12 Reviewed: TMS Tech Note Reviewed Verification: I have reviewed the TMS Tea Bag Machine Tender Note and agree with the contents. The patient remains a candidate to continue TMS treatment per protocol.
--- NOTE | 2021-06-06 23:47 | P.PNPS_ITS ---
TMS Daily Progress Note Daily TMS Progress Note Date of Service: 06/06/21 Week #: 4 Treatment #(03-16): 20 PHQ-9 Pre-Treatment (03-13): 21 PHQ-9 Most Recent (03-13): 12 Reviewed: TMS Tech Note Reviewed Verification: I have reviewed the TMS White Goods Appliance Tech Note and agree with the contents. The patient remains a candidate to continue TMS treatment per protocol.
--- NOTE | 2021-06-10 10:37 | HO.TMSDAILY2 ---
TMS Daily Progress Note Daily TMS Progress Note Date of Service: 06/09/21 Week #: 4 Treatment #(03-16): 21 PHQ-9 Pre-Treatment (03-13): 21 PHQ-9 Most Recent (03-13): 12 Reviewed: TMS Tech Note Reviewed Verification: I have reviewed the TMS Forklift Technician Note and agree with the contents. The patient remains a candidate to continue TMS treatment per protocol.
--- NOTE | 2021-06-10 21:30 | HO.TMSDAILY2 ---
TMS Daily Progress Note Daily TMS Progress Note Date of Service: 06/10/21 Week #: 4 Treatment #(03-16): 22 PHQ-9 Pre-Treatment (03-13): 21 PHQ-9 Most Recent (03-13): 12 Reviewed: TMS Tech Note Reviewed Verification: I have reviewed the TMS Airplane Flight Attendant Supervisor Note and agree with the contents. The patient remains a candidate to continue TMS treatment per protocol.
--- NOTE | 2021-06-13 22:31 | P.PNPS_ITS ---
TMS Daily Progress Note Daily TMS Progress Note Date of Service: 06/13/21 Week #: 5 Treatment #(03-16): 23 PHQ-9 Pre-Treatment (03-13): 21 PHQ-9 Most Recent (03-13): 12 Reviewed: TMS Tech Note Reviewed Verification: I have reviewed the TMS Explosive Ordnance Disposal Manager Note and agree with the contents. The patient remains a candidate to continue TMS treatment per protocol.
--- NOTE | 2021-06-16 22:26 | P.PNPS_ITS ---
TMS Daily Progress Note Daily TMS Progress Note Date of Service: 06/11/21 Week #: 5 Treatment #(03-16): 21 PHQ-9 Pre-Treatment (03-13): 21 PHQ-9 Most Recent (03-13): 12 Reviewed: TMS Tech Note Reviewed Verification: I have reviewed the TMS Director Post Note and agree with the contents. The patient remains a candidate to continue TMS treatment per protocol.
--- NOTE | 2021-06-16 22:27 | P.PNPS_ITS ---
TMS Daily Progress Note Daily TMS Progress Note Date of Service: 06/11/21 Week #: 5 Treatment #(03-16): 21 PHQ-9 Pre-Treatment (03-13): 21 PHQ-9 Most Recent (03-13): 12 Reviewed: TMS Tech Note Reviewed Verification: I have reviewed the TMS Climate Change Risk Assessor Note and agree with the contents. The patient remains a candidate to continue TMS treatment per protocol.
--- NOTE | 2021-06-16 22:30 | HO.TMSDAILY2 ---
TMS Daily Progress Note Daily TMS Progress Note Date of Service: 06/12/21 Week #: 5 Treatment #(03-16): 22 PHQ-9 Pre-Treatment (03-13): 21 PHQ-9 Most Recent (03-13): 12 Reviewed: TMS Tech Note Reviewed Verification: I have reviewed the TMS Medical Apparatus Model Maker Note and agree with the contents. The patient remains a candidate to continue TMS treatment per protocol.
--- NOTE | 2021-06-17 15:01 | P.PNPS_ITS ---
TMS Daily Progress Note Daily TMS Progress Note Date of Service: 05/29/21 Week #: 3 (15) Treatment #(03-16): 23 PHQ-9 Pre-Treatment (03-13): 21 PHQ-9 Most Recent (03-13): 12 Reviewed: TMS Tech Note Reviewed Verification: I have reviewed the TMS Bucket Operator Note and agree with the contents. The patient remains a candidate to continue TMS treatment per protocol.
--- NOTE | 2021-06-17 15:03 | P.PNPS_ITS ---
TMS Daily Progress Note Daily TMS Progress Note Date of Service: 05/30/21 Week #: 4 (16) Treatment #(03-16): 23 PHQ-9 Pre-Treatment (03-13): 21 PHQ-9 Most Recent (03-13): 12 Reviewed: TMS Tech Note Reviewed Verification: I have reviewed the TMS Biomedical Analytical Scientist Note and agree with the contents. The patient remains a candidate to continue TMS treatment per protocol.
--- NOTE | 2021-06-17 23:17 | HO.TMSDAILY2 ---
TMS Daily Progress Note Daily TMS Progress Note Date of Service: 06/17/21 Week #: 5 Treatment #(03-16): 24 PHQ-9 Pre-Treatment (03-13): 21 PHQ-9 Most Recent (03-13): 12 Reviewed: TMS Tech Note Reviewed Verification: I have reviewed the TMS Print Shop Stenographer Note and agree with the contents. The patient remains a candidate to continue TMS treatment per protocol.
--- NOTE | 2021-06-20 17:31 | HO.TMSDAILY2 ---
TMS Daily Progress Note Daily TMS Progress Note Date of Service: 06/20/21 Week #: 6 Treatment #(03-16): 26 PHQ-9 Pre-Treatment (03-13): 21 PHQ-9 Most Recent (03-13): 12 Reviewed: TMS Tech Note Reviewed Verification: I have reviewed the TMS Edge Grinder Machine Note and agree with the contents. The patient remains a candidate to continue TMS treatment per protocol.
--- NOTE | 2021-06-20 17:35 | P.PNPS_ITS ---
TMS Daily Progress Note Daily TMS Progress Note Date of Service: 06/21/21 Week #: 6 Treatment #(03-16): 27 PHQ-9 Pre-Treatment (03-13): 21 PHQ-9 Most Recent (03-13): 12 Reviewed: TMS Tech Note Reviewed Verification: I have reviewed the TMS Dynamometer Mechanic Note and agree with the contents. The patient remains a candidate to continue TMS treatment per protocol.
--- NOTE | 2021-06-23 22:26 | HO.TMSDAILY2 ---
TMS Daily Progress Note Daily TMS Progress Note Date of Service: 06/23/21 Week #: 6 Treatment #(03-16): 28 PHQ-9 Pre-Treatment (03-13): 21 PHQ-9 Most Recent (03-13): 12 Reviewed: TMS Tech Note Reviewed Verification: I have reviewed the TMS Food Tray Assembler Note and agree with the contents. The patient remains a candidate to continue TMS treatment per protocol.
--- NOTE | 2021-06-26 22:33 | HO.TMSDAILY2 ---
TMS Daily Progress Note Daily TMS Progress Note Date of Service: 06/24/21 Week #: 6 Treatment #(03-16): 29 PHQ-9 Pre-Treatment (03-13): 21 PHQ-9 Most Recent (03-13): 12 Reviewed: TMS Tech Note Reviewed Verification: I have reviewed the TMS Agents' Records Clerk Note and agree with the contents. The patient remains a candidate to continue TMS treatment per protocol.
--- NOTE | 2021-06-26 22:43 | P.PNPS_ITS ---
TMS Daily Progress Note Daily TMS Progress Note Date of Service: 06/25/21 Week #: 6 Treatment #(03-16): 30 PHQ-9 Pre-Treatment (03-13): 21 PHQ-9 Most Recent (03-13): 12 Reviewed: TMS Tech Note Reviewed Verification: I have reviewed the TMS Propellant Charge Zone Assembler Note and agree with the contents. The patient remains a candidate to continue TMS treatment per protocol.
--- NOTE | 2021-06-26 22:47 | P.PNPS_ITS ---
TMS Daily Progress Note Daily TMS Progress Note Date of Service: 06/26/21 Week #: 7 Treatment #(03-16): 31 PHQ-9 Pre-Treatment (03-13): 21 PHQ-9 Most Recent (03-13): 12 Reviewed: TMS Tech Note Reviewed Verification: I have reviewed the TMS [facility] Sales Note and agree with the contents. The patient remains a candidate to continue TMS treatment per protocol.
--- NOTE | 2021-06-26 22:49 | P.PNPS_ITS ---
TMS Daily Progress Note Daily TMS Progress Note Date of Service: 06/26/21 Week #: 7 Treatment #(03-16): 33 PHQ-9 Pre-Treatment (03-13): 21 PHQ-9 Most Recent (03-13): 12 Reviewed: TMS Tech Note Reviewed Verification: I have reviewed the TMS Punch Press Operator Helper Note and agree with the contents. The patient remains a candidate to continue TMS treatment per protocol.
--- NOTE | 2021-06-27 18:02 | HO.TMSDAILY2 ---
TMS Daily Progress Note Daily TMS Progress Note Date of Service: 06/28/21 Week #: 7 Treatment #(03-16): 34 PHQ-9 Pre-Treatment (03-13): 21 PHQ-9 Most Recent (03-13): 12 Reviewed: TMS Tech Note Reviewed Verification: I have reviewed the TMS Press Setter Note and agree with the contents. The patient remains a candidate to continue TMS treatment per protocol.
--- NOTE | 2021-06-30 22:36 | P.PNPS_ITS ---
TMS Daily Progress Note Daily TMS Progress Note Date of Service: 06/30/21 Week #: 8 Treatment #(03-16): 35 PHQ-9 Pre-Treatment (03-13): 21 PHQ-9 Most Recent (03-13): 12 Reviewed: TMS Tech Note Reviewed Verification: I have reviewed the TMS Client Support Administrator Note and agree with the contents. The patient remains a candidate to continue TMS treatment per protocol.
--- NOTE | 2021-07-01 22:36 | P.PNPS_ITS ---
TMS Daily Progress Note Daily TMS Progress Note Date of Service: 07/01/21 Week #: 8 Treatment #(03-16): 36 PHQ-9 Pre-Treatment (03-13): 21 PHQ-9 Most Recent (03-13): 12 Reviewed: TMS Tech Note Reviewed Verification: I have reviewed the TMS Terra [place]ta Setter Note and agree with the contents. The patient remains a candidate to continue TMS treatment per protocol.
== END | disposition home or self-care (01) ==
LOC: HO.PTMS 05-08 14:30
PROVIDERS: PCP Physician Assistant; Visit Provider Psychiatry & Neurology Psychiatry
DX: F33.2 Major depressive disorder, recurrent severe without psychotic features (principal); F41.1 Generalized anxiety disorder
CPT/HCPCS: 90867; 90868

== ENCOUNTER 2023-08-02 15:23 | Outpatient (REF) | payer OTHER, SELFPAY | END 2023-08-02 15:24 | disposition home or self-care (01) | LOC: HO.MAMMO 15:23 | PROVIDERS: PCP Physician Assistant; Visit Provider Physician Assistant | DX: Z12.31 Encounter for screening mammogram for malignant neoplasm of breast (principal) | CPT/HCPCS: 77063; 77067 ==

== ENCOUNTER → 2023-08-02 15:30 | Outpatient (BNV) | payer OTHER, SELFPAY | PROVIDERS: PCP Physician Assistant; Visit Provider Radiology Diagnostic Radiology | DX: Z12.31 Encounter for screening mammogram for malignant neoplasm of breast (principal) | CPT/HCPCS: 77063; 77067 ==

== ENCOUNTER 2024-06-15 09:24 | Outpatient (AMB) | payer OTHER, SELFPAY ==
--- NOTE | 2024-06-15 09:28 | A.OFFVIS_ITS ---
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 She states that she has both SVT as well as atrial fibrillation. SVT itself was diagnosed more than 15 years ago. The atrial fibrillation was diagnosed about 8 years ago. In fact she actually had a hospitalization to [place] in 2018 when I had seen in inpatient consultation. At that time, she had atrial fibrillation but converted to sinus rhythm. She is on atenolol for this. No anticoagulation. He states that she still gets palpitations fairly frequently. She also gets some chest pains intermittently. Sometimes this can happen with the palpitations. Sometimes with exertion. However, no previously diagnosed coronary artery disease. She is interested in ablation for her cardiac arrhythmias. Otherwise, there is a history of lung cancer and seems that she underwent right middle lobectomy in the past. Stable in that regard per patient. [facility] Medical History (Updated 06/15/24 @ 09:57 by Daryl Onofre MD) Lung cancer Hypothyroidism Paroxysmal A-fib Generalized anxiety disorder Surgical History (Updated 06/15/24 @ 09:57 by Daryl Onofre MD) History of lobectomy of lung Family History (Updated 06/15/24 @ 09:37 by Maddie Monreal CMA) Father Heart attack Mother New onset a-fib Maternal Uncle Family history of heart attack Social History (Updated 06/15/24 @ 09:38 by Maddie Monreal CMA) Alcohol intake: current Alcohol intake frequency: holidays/special occasions only Patient Tobacco Use Status: Former Tobacco user Tobacco use type: Cigarette Cigarette Packs Per Day: 3 Review of Systems Const Denies chills, Denies fatigue, Denies fever(s), Denies frequent falls, Denies weakness, Denies weight gain and Denies weight loss ENT Denies dizziness Card Denies chest pain, Denies leg edema, Denies lightheadedness, Denies palpitations, Reports dyspnea, Reports dyspnea on exertion and Denies orthopnea Resp Denies cough, Reports dyspnea and Reports dyspnea on exertion GI Denies bloating and Denies change in bowel habits Musc Denies muscle weakness, Denies numbness and Denies tingling Neuro Denies dizziness, Denies frequent falls, Denies numbness, Denies tingling and Denies weakness Endo Denies fatigue and Denies palpitations Physical Exam Vital Signs: Last Vital Signs Pulse 70 06/15/24 09:29 BP 132/72 06/15/24 09:29 BMI result Body Mass Index 35.7 Const General: comfortable and no acute distress Orientation/consciousness: patient oriented x3 HEENT Other: Unremarkable Head: Yes normal to inspection Neck Neck: Yes normal visual inspection Chest Chest palpation & inspection: normal inspection of the chest Resp Auscultation: clear to auscultation bilaterally Cardio Palpation: normal PMI Heart sounds: S1 normal heart sound present, S2 normal heart sound present, no gallops, no murmurs and no rubs GI Palpation (GI): Soft to palpation Back/Spine/Pelvis Other: unremarkable Skin General skin exam: no rashes or lesions noted Neuro General: patient oriented x3 Extrem General: Yes normal to inspection Psych Mental Status: mental status grossly normal Office Procedures EKG Details: EKG with underlying sinus rhythm at 70/Min; leftward axis; no significant ST-T changes; [place]. [id number], Complete Assessment & Plan Assessment & Plan (1) Paroxysmal A-fib: Code(s): I48.0 - Paroxysmal atrial fibrillation Category: Medical (2) SVT (supraventricular tachycardia): Code(s): I47.10 - Supraventricular tachycardia, unspecified Category: Medical (3) Precordial chest pain: Code(s): R07.2 - Precordial pain Category: Medical Plan Cardiac studies reviewed. EKGs from 2018 show atrial fibrillation with slightly rapid rate. Today, in sinus rhythm by EKG. Myocardial perfusion imaging study from 2022 showed equivocal anterolateral wall ischemia. Overall, history of atrial fibrillation, SVT, recurring palpitations, chest pains. She needs comprehensive cardiovascular assessment. We will get an echocardiogram, 30 day monitor as well as coronary CTA. Discussed about these in detail and she is willing to proceed. He is also interested in ablation but we will need to get the above data 1st before EP referral. She agrees with that. Follow-up after testing. Discussion Notes During our conversation, we reviewed the patient's history of Atrial Fibrillation and Supraventricular Tachycardia, stressing the importance of current diagnostic information through an echocardiogram and Holter monitor. The patient opts for a one-month Holter monitoring to capture any arrhythmic events effectively. We discussed the logistics, with modern Holter devices being more convenient and user-friendly. I elaborated on the potential for catheter ablation as newer method offerings, enhanced techniques albeit consistent risk s tructures which must be clarified upon later discussions. Patient was informed and verbally consented to the use of an ambient scribe for clinic note documentation during this visit. Orders: Orders ECG 30 day event monitor Today I48.0 - Paroxysmal atrial fibrillation CA echo transthoracic complete Today I47.10 - Supraventricular tachycardia, unspecified, I48.0 - Paroxysmal atrial fibrillation CT Cardiac Coronary Angio Today I25.10 - Atherosclerotic heart disease of [place] coronary artery without angina pectoris, I48.0 - Paroxysmal atrial fibrillation Basic Metabolic Panel Today I48.0 - Paroxysmal atrial fibrillation Patient Instructions: - Use current medication Atenolol as prescribed for symptomatic relief. - Await scheduling details for an echocardiogram and extended Holter monitoring. - Monitor symptoms, notably chest pain with activity, and report any significant changes. - Maintain a record of symptoms while on the Holter monitor for more accurate diagnosis. - Keep your follow up appointment to discuss further plans. Coding Level of Care Code New Pt Level 4 (34579) Complex EM visit Add On G2211 Diagnoses Paroxysmal A-fib I48.0 SVT (supraventricular tachycardia) I47.10 Precordial chest pain R07.2 CPT Codes EKG - CPT: 13268-[id number], Complete ([id number])
[2024-06-15 09:29] VITALS: BP 132/72; PULSE 70; BMI 35.7
== END 2024-06-15 10:08 | disposition home or self-care (01) ==
LOC: HO.HCS 09:24
PROVIDERS: PCP Physician Assistant; Visit Provider Internal Medicine
DX: I48.0 Paroxysmal atrial fibrillation (principal); I47.10 Supraventricular tachycardia, unspecified; R07.2 Precordial pain; R94.31 Abnormal electrocardiogram [ECG] [EKG]
CPT/HCPCS: 93010; 99214; G2211

== ENCOUNTER → 2024-06-15 09:24 | Outpatient (BNVA) | payer OTHER, SELFPAY | PROVIDERS: PCP Physician Assistant; Visit Provider Internal Medicine | DX: I48.0 Paroxysmal atrial fibrillation (principal); I47.10 Supraventricular tachycardia, unspecified; R07.2 Precordial pain; R94.31 Abnormal electrocardiogram [ECG] [EKG] | CPT/HCPCS: 93005; 99212 ==

== ENCOUNTER → 2024-07-19 12:33 | Outpatient (REF) | payer OTHER, SELFPAY ==
--- NOTE | 2024-07-19 12:36 | CA_ITS ---
Transthoracic Echocardiogram Patient (Last, First, Middle): Rimma Pacheco Linda Gender: Female Date of : 1965 Age: 59 Procedure Date: 07/19/2024 Procedure Type: Transthoracic Echocardiogram Location: OP Height: 175.26 cm Weight: 108.86 kg BSA: 2.23 m2 Heart Rate: bpm BP: 130 / 85 mmHg Trawl Net Maker: Referring MD: Daryl Onofre MD Symptoms: I48.0 - Paroxysmal atrial fibrillation Study Quality: Good ECG Rhythm: Sinus Conclusions: - The left ventricular systolic function is normal. The calculated ejection fraction is 63% by biplane method. - No obvious valvular pathology seen on this study. Findings Left Ventricle Normal left ventricular cavity size. There is mildly increased left ventricular wall thickness. The left ventricular systolic function is normal. The calculated ejection fraction is 63% by biplane method. There is no evidence of regional wall motion abnormalities. Diastolic function is normal for age. Right Ventricle Normal right ventricular cavity size. There is low normal right ventricular systolic function. Atria Both atria are normal in size. Aortic Valve There is a normal trileaflet aortic valve. There is no aortic valve stenosis. There is trace (trivial) aortic valve regurgitation. Mitral Valve The mitral valve appears normal. There is mild mitral annular calcification. There is trace mitral valve regurgitation. There is no mitral valve stenosis. Pulmonic Valve The pulmonic valve is likely normal. Tricuspid Valve There is trace tricuspid valve regurgitation. There is no evidence of pulmonary hypertension. Great Vessels The asc aorta is normal in size. Venous The inferior vena cava is normal in size and collapses greater than 50% with inspiration. Pericardium/Pleural There is no evidence of pericardial effusion. Prior Study Comparison No significant change compared to prior study dated: 06/08/2022. Recommendations, Care & Conclusions No obvious valvular pathology seen on this study. Measurements 2D Linear Measurements IVSd: 1.11 0.6-0.9/0.6-1.0 cm LVIDd: 3.92 3.9-5.3/4.2-5.9 cm LVIDd Index: 1.76 2.4-3.2/2.2-3.1 cm/m2 LVIDs: 2.51 2.0-3.6 cm LVPWd: 1.04 0.7-1.1 cm Ao Root: 3.60 2.1-3.5 cm LA Diam: 3.40 2.7-3.8/3.0-4.0 cm LAIDs Index: 1.52 1.5-2.3 cm/m2 LV Mass: 169.95 67-162/88-224 g LV Mass Index: 76.21 43-95/49-115 g/m2 LVOT Diam: 2.30 3.0+(-)1.3 cm 2D Systolic Function EF 4C: 63.90 >55% EF 2C: 63.90 >55% EF BiP: 63.30 >55% Mitral Valve MV Pk E: 0.34 MV PK A: 0.82 MV Decel Time: 137.00 E/A: 0.40 E'Lateral: 9.79 E'Medial: 8.92 E/E' Med: 3.80 E/E' Lat: 3.50 PHT: 40.00 MVA PHT: 5.50 Decel Williams: 4.35 Aortic Valve AoV Pk Ziyad: 1.39 AoV Mn Ziyad: 1.00 AoV VTI: 0.32 AoV Pk Grad: 8.00 Aov Mn Grad: 4.00 SARY Cont.VTI: 2.89 LVOT LVOT Pk Ziyad: 1.10 LVOT Mn Ziyad: 0.65 LVOT VTI: 0.22 LVOT Pk Grad: 5.00 LVOT Mn Grad: 2.00 LVOT Diam: 2.30 LVOT Area: 4.15 Diastolic Function MV Pk E: 0.34 MV Pk A: 0.82 E/A: 0.40 E'Medial: 8.92 E/E' Med: 3.80 E' Laterial: 9.79 E/E' Lat: 3.50 Right Ventricle TAPSE (mm): 23.00 TVS' Ziyad: 9.00 Tricuspid Valve TR Pk Ziyad: 1.82 TR Pk Grad: 13.00 RA Press: 3.00 RVSP: 16.00 Great Vessels Aorta Ao Root-2D: 3.60 2.0-3.7 cm Ao Asc: 3.50 2.1-3.4 cm Updated in Other Vendor System with Status of Final Daryl Onofre MD electronically signed on 07/20/2024 3:52:11 PM with status of Final
== END ==
LOC: HO.CARD 12:33
PROVIDERS: PCP Physician Assistant; Visit Provider Internal Medicine
DX: I48.0 Paroxysmal atrial fibrillation (principal); I47.10 Supraventricular tachycardia, unspecified
CPT/HCPCS: 93306

== ENCOUNTER → 2024-07-19 12:36 | Outpatient (BNV) | payer OTHER, SELFPAY | PROVIDERS: PCP Physician Assistant; Visit Provider Internal Medicine | DX: I42.8 Other cardiomyopathies (principal); I34.81 Nonrheumatic mitral (valve) annulus calcification | CPT/HCPCS: 93306 ==

== ENCOUNTER → 2024-09-04 10:58 | Outpatient (REF) | payer OTHER, SELFPAY ==
--- NOTE | 2024-09-04 11:26 | HM_ITS ---
Cardiac event monitor Indication: Paroxysmal atrial fibrillation Technique: Patient was hooked up to cardiac event monitor from 09/04/2024 to 10/04/2024 for total period of 30 days. Total wear time was only 2.2 days Findings: Baseline was normal sinus rhythm with average heart rate of 69 beats per minute. Sinus rhythm was noted 99.91% of the time. Lowest heart rate was 50 beats per minute in sinus bradycardia and maximum heart rate 120 beats per minute in sinus tachycardia. There were no significant pauses or av conduction abnormalities noted during this brief period of monitoring. Rare PVCs noted with 1 3 beat nataliya of nonsustained VT. Rare PACs were noted. Patient did not marked any event. Conclusion: 1. Brief monitoring for 2.2 days 2. Baseline was normal sinus rhythm with average heart rate of 69 beats per minute 3. Rare PACs and PVCs noted with 1 3 beat nataliya of nonsustained VT 4. No patient reported events MTDD
--- OUTSIDE RECORDS SUMMARY | 2024-09-04 12:08 | XMS_ITS | Encounter Summary ---
Author Organization [facility] Address [address] [place] [id number] Phone Care Team Providers Care Nutritionist Public Health Name Role Phone Alec Jarrett Primary Care Provid er Encounter Details Date Type Department Care Team (Latest Contact Info) Description 11/11/2017 Transcribe Orders [facility] [address] [place] [address] Mechelle Arellano ARNP Pre-employment health screening examination (Primary Dx) Social History Tobacco Use Types Packs/Day Years Used Date Smoking Tobacco: Never Assessed Comments Unknown Sex and Gender Information Value Date Recorded Sex Assigned at Not on file Legal Sex Female 9:43 PM EDT Gender Identity Not on file Sexual Orientation Not on file documented as of this encounter Plan of Treatment Not on file documented as of this encounter Results * Hepatitis B surface antibody (11/11/2017 12:59 PM EDT) HBV SURFACE ANTIBODY Negative [facility] Comment: Unvaccinated: Negative Vaccinated: Positive Blood 11/11/2017 12:5 9 PM EDT 11/11/2017 4:06 PM EDT us Mechelle [facility] BLOOD ORDERABLES Final Result [facility] [address] [place] [address] * Measles antibody, IgG (11/11/2017 12:59 PM EDT) RUBEOLA IGG Positive Positive [facility] Blood (Blood) 11/11/2017 12: 59 PM EDT 11/12/2017 10:33 AM EDT us Mechelle [facility] NON CULTURE MICROBIOLOGY Fi nal Result Performing Organization Address [facility] Co de Phone Number [address] [address] * Mumps antibody, IgG (11/11/2017 12:59 PM EDT) MUMPS IGG AB Positive Positive [facility] Blood (Blood) 11/11/2017 12: 59 PM EDT 11/12/2017 10:33 AM EDT us Mechelle [facility] NON CULTURE MICROBIOLOGY Fi nal Result Performing Organization Address [facility] Co de Phone Number [address] [address] * Rubella antibody, IgG (11/11/2017 12:59 PM EDT) Rubella Ab, IgG Positive Positive [facility] Blood (Blood) 11/11/2017 12: 59 PM EDT 11/12/2017 10:33 AM EDT us Mechelle [facility] NON CULTURE MICROBIOLOGY Fi nal Result Performing Organization Address [facility] Co de Phone Number [address] [address] * Varicella-zoster (VZV) antibody, IgG (11/11/2017 12:59 PM EDT) Varicella Ab(s) Positive Positive [facility] Blood (Blood) 11/11/2017 12: 59 PM EDT 11/12/2017 10:33 AM EDT us Mechelle [facility] NON CULTURE MICROBIOLOGY Fi nal Result Performing Organization Address [facility] Co de Phone Number [address] [place] [address] * T spot TB test (11/11/2017 12:59 PM EDT) T SPOT Tuberculosis Negative [facility] Comment:TESTING PERFORMED AT [employer] [place] [address] Blood 11/11/2017 12:5 9 PM EDT 11/11/2017 4:06 PM EDT Mechelle [facility] BLOOD ORDERABLES Final Result [facility] [address] [place] [address] documented in this encounter Visit Diagnoses Diagnosis Pre-employment health screening examination- Primary Health examination of defined subpopulation documented in this encounter Additional Health Concerns Infection Onset Date Last Indicated Resolved Time CoV-Risk Comment:COVID-19 test pending 07/04/2019 07/04/2019 07/18/2019 1:24 AM EDT documented as of this encounter Care Teams Nutritionist Public Health Relationship Specialty Start Date End Date Alec Jarrett PA PCP - General 11/11/17 documented as of this encounter Additional Source Comments The information contained in this document represents components of the legal health record. It is not the complete legal health record.[facility]
== END ==
LOC: HO.CARD 10:58
PROVIDERS: PCP Physician Assistant; Visit Provider Internal Medicine
DX: I48.0 Paroxysmal atrial fibrillation (principal)
CPT/HCPCS: 93270

== ENCOUNTER → 2024-09-04 11:26 | Outpatient (BNV) | payer OTHER, SELFPAY | PROVIDERS: PCP Physician Assistant; Visit Provider Internal Medicine Cardiovascular Disease | DX: I49.1 Atrial premature depolarization (principal); I49.3 Ventricular premature depolarization | CPT/HCPCS: 93272 ==

== ENCOUNTER 2024-11-07 14:22 | Outpatient (AMB) | payer OTHER, SELFPAY ==
--- NOTE | 2024-11-07 14:24 | A.OFFVIS_ITS ---
Vital Signs 11/07/24 14:27 Height 5 ft 9 in Weight 234 lb 2.095 oz BMI 34.6 BP 130/70 Blood Pressure Location Lt brachial Position Sitting Pulse 69 Pulse Source Pulse Oximeter Intake Visit Reasons: 2month f/up after tests Application Architect Required: No Accompanied by: Self / Same As Patient Allergies No Known Allergies (No Known Allergies*) Allergy (Unverified 06/15/24 09:30) Medication List - Last Reconciled 11/07/24 by Daryl Onofre MD aspirin (Adult Low Dose Aspirin) 81 mg PO DAILY atenolol 50 mg PO DAILY fenofibrate 40 mg PO DAILY levothyroxine 125 mcg PO DAILY vortioxetine 20 mg PO DAILY HPI Comments Details: Rimma returns for follow-up. She has a history of SVT as well as atrial fibrillation. SVT itself was apparently diagnosed more than 15 years ago. Atrial fibrillation diagnosed about 8 years ago. In fact she actually had a hospitalization to [place] in 2018 when I had seen in inpatient consultation. At that time, she had atrial fibrillation but converted to sinus rhythm. She is on atenolol for this. No anticoagulation. He states that she still gets palpitations. She also gets some chest pains intermittently. Sometimes this can happen with the palpitations. However, no previously diagnosed coronary artery disease. Otherwise, there is a history of lung cancer and seems that she underwent right middle lobectomy in the past. Stable in that regard per patient. She has completed an echocardiogram, Holter and coronary CTA. [facility] Medical History Lung cancer Hypothyroidism Paroxysmal A-fib Generalized anxiety disorder Surgical History History of lobectomy of lung Family History Father Heart attack Mother New onset a-fib Maternal Uncle Family history of heart attack Social History Alcohol intake: current Alcohol intake frequency: holidays/special occasions only Patient Tobacco Use Status: Former Tobacco user Tobacco use type: Cigarette Cigarette Packs Per Day: 3 Review of Systems Const Denies chills, Denies fatigue, Denies fever(s), Denies frequent falls, Denies weakness, Denies weight gain and Denies weight loss ENT Denies dizziness Card Denies chest pain, Denies leg edema, Denies lightheadedness, Denies palpitations, Denies dyspnea and Denies dyspnea on exertion Resp Denies cough, Denies dyspnea and Denies dyspnea on exertion GI Denies hematochezia Musc Denies abnormal gait, Denies muscle weakness, Denies numbness, Denies radiating pain into limb and Denies tingling Neuro Denies abnormal gait, Denies dizziness, Denies frequent falls, Denies numbness, Denies tingling and Denies weakness Endo Denies fatigue and Denies palpitations Physical Exam Vital Signs: Last Vital Signs Pulse 69 11/07/24 14:27 BP 130/70 11/07/24 14:27 BMI result Body Mass Index 34.6 Const General: comfortable and no acute distress Orientation/consciousness: patient oriented x3 HEENT Other: Unremarkable Head: Yes normal to inspection Neck Neck: Yes normal visual inspection Chest Chest palpation & inspection: normal inspection of the chest Resp Auscultation: clear to auscultation bilaterally Cardio Palpation: normal PMI Heart sounds: S1 normal heart sound present, S2 normal heart sound present, no gallops, no murmurs and no rubs GI Palpation (GI): Soft to palpation Back/Spine/Pelvis Other: unremarkable Skin General skin exam: no rashes or lesions noted Neuro General: patient oriented x3 Extrem General: Yes normal to inspection Psych Mental Status: mental status grossly normal Assessment & Plan Assessment & Plan (1) Paroxysmal A-fib: Code(s): I48.0 - Paroxysmal atrial fibrillation Category: Medical (2) SVT (supraventricular tachycardia): Code(s): I47.10 - Supraventricular tachycardia, unspecified Category: Medical (3) NSVT (nonsustained ventricular tachycardia): Code(s): I47.29 - Other ventricular tachycardia Category: Medical Plan Cardiac studies reviewed. EKGs from 2018 show atrial fibrillation with slightly rapid rate. Echocardiogram with LVEF of 63%. No significant valvular findings. She wore the geriatric care manager only for 2 days because of allergic reaction. Underlying rhythm is sinus. Rare PACs, PVCs with a triplet. Coronary CTA with no evidence of hemodynamically significant disease. In the distal RCA, mild smooth stenosis, possible spasm but there was no plaque. Overall, history of atrial fibrillation, SVT, PVCs/brief NSVT, palpitations. She is on beta-blockers and she continue that without changes as her symptoms are mostly controlled. If indeed she gets more palpitations, she can take an extra half a tablet all we can just increase the dose to atenolol 75 mg daily. Otherwise, if she continues to feel palpitations she may need an implantable loop recorder as she has allergic reaction to the even monitor patch. We discussed about these today and she agrees. Discussion Notes During the consultation, we discussed the patient's cardiac conditions, including palpitations, PVCs, AFib, and SVT. The patient was informed about the benign nature of PVCs and the current management plan, which includes monitoring symptoms and considering an increase in beta marcus dosage if necessary. We also explored the option of an implantable loop recorder for continuous monitoring of AFib episodes. The patient was advised to seek emergency care if severe episodes occur to document the events. We agreed to follow up in six months to reassess the patient's condition and management plan. Patient was informed and verbally consented to the use of an ambient scribe for clinic note documentation during this visit. Patient Instructions: - Monitor your symptoms and note any changes. - If you experience severe palpitations, seek emergency care to document the event. - Consider increasing your beta marcus dosage if symptoms worsen, as discussed. - Follow up in six months to reassess your condition. Coding Level of Care Code Est Pt Level 4 (86600) Complex EM visit Add On G2211 Diagnoses Paroxysmal A-fib I48.0 SVT (supraventricular tachycardia) I47.10 NSVT (nonsustained ventricular tachycardia) I47.29
[2024-11-07 14:27] VITALS: BP 130/70; PULSE 69; BMI 34.6
--- OUTSIDE RECORDS SUMMARY | 2024-11-07 17:38 | XMS_ITS | Encounter Summary ---
Author Organization [facility] Address [address] [place] [address] Phone Care Team Providers Care Playground Worker Name Role Phone Alec Jarrett Primary Care Provid er Encounter Details Date Type Department Care Team (Latest Contact Info) Description 11/11/2017 Transcribe Orders [facility] [address] [place] [address] Mechelle Arellano ARNP Pre-employment health screening examination [...] 12:59 PM EDT) HBV SURFACE ANTIBODY Negative [facility] Comment: Unvaccinated: Negative Vaccinated: Positive Blood 11/11/2017 12:5 9 PM EDT 11/11/2017 4:06 PM EDT us Mechelle MORTON LAB BLOOD ORDERABLES Final Result [facility] [address] [place] [address] * Measles antibody, IgG (11/11/2017 12:59 PM EDT) RUBEOLA IGG Positive Positive [facility] Blood (Blood) 11/11/2017 12: 59 PM EDT 11/12/2017 10:33 AM EDT us Mechelle MORTON NON CULTURE MICROBIOLOGY Fi nal Result Performing Organization Address [facility] Co de Phone Number [address] [address] * Mumps antibody, IgG (11/11/2017 12:59 PM EDT) MUMPS IGG AB Positive Positive [facility] Blood (Blood) 11/11/2017 12: 59 PM EDT 11/12/2017 10:33 AM EDT us Mechelle MORTON NON CULTURE MICROBIOLOGY Fi nal Result Performing Organization Address [facility] Co de Phone Number [address] [address] * Rubella antibody, IgG (11/11/2017 12:59 PM EDT) Rubella Ab, IgG Positive Positive [facility] Blood (Blood) 11/11/2017 12: 59 PM EDT 11/12/2017 10:33 AM EDT us Mechelle MORTON NON CULTURE MICROBIOLOGY Fi nal Result Performing Organization Address [facility] Co de Phone Number [address] [address] * Varicella-zoster (VZV) antibody, IgG (11/11/2017 12:59 PM EDT) Varicella Ab(s) Positive Positive [facility] Blood (Blood) 11/11/2017 12: 59 PM EDT 11/12/2017 10:33 AM EDT us Mechelle MORTON NON CULTURE MICROBIOLOGY Fi nal Result Performing Organization Address [facility] Co de Phone Number [address] [place] [address] * T spot TB test (11/11/2017 12:59 PM EDT) T SPOT Tuberculosis Negative [facility] Comment:TESTING PERFORMED [place] [employer] [place] [address] Blood 11/11/2017 12:5 9 PM EDT 11/11/2017 4:06 PM EDT Mechelle MORTON LAB BLOOD ORDERABLES Final Result [facility] [address] [place] [address] documented in this encounter Visit Diagnoses Diagnosis Pre-employment health screening examination- Primary Health examination of defined subpopulation documented in this encounter Additional Health Concerns Infection Onset Date Last Indicated Resolved Time CoV-Risk Comment:COVID-19 test pending 07/04/2019 07/04/2019 07/18/2019 1:24 AM EDT documented as of this encounter Care Teams Playground Worker Relationship Specialty Start Date End Date Alec Jarrett PA PCP - General 11/11/17 documented as of this encounter Additional Source Comments The information contained in this document represents components of the legal health record. It is not the complete legal health record.[facility]
--- OUTSIDE RECORDS SUMMARY | 2024-11-07 17:38 | XMS_ITS | Clinical Summary ---
Author Organization [facility] Address [address] [place] [address] Phone Care Team Providers Care Neurology Technologist Name Role Phone Alec Jarrett Primary Care Provid er Social History Tobacco Use Types Packs/Day Years Used Date Smoking Tobacco: Never Assessed Education Answer Date Recorded Are you interested in more education? Not on ashanti e 06/12/2022 Are you concerned about learning? Not on file 06/12/2022 No 06/12/2022 No 06/12/2022 Digital Access Answer Date Recorded No 07/13/2022 No 07/13/2022 No 07/13/2022 Reliable internet access at home? Not on file 07/13/2022 Device with a working camera? Not on file Comments No Sex and Gender Information Value Date Recorded Sex Assigned at Not on file Legal Sex Female 9:43 PM EDT Gender Identity Not on file Sexual Orientation Not on file Last Filed Vital Signs Vital Sign Reading Time Taken Comments Blood Pressure - - Pulse - - Temperature - - Respiratory Rate - - Oxygen Saturation - - Inhaled Oxygen Concentration - - Weight 100.7 kg (222 lb) 08/30/2018 5:11 PM EDT Height 175.3 cm (5' 9 ) 08/30/2018 5:11 PM EDT Body Mass Index 32.78 08/30/2018 5:11 PM EDT Plan of Treatment Not on file Medical Devices Not on file Insurance [facility] [address] [place] [address] [place] [address] [facility] Care Teams Neurology Technologist Relationship Specialty Start Date End Date Alec Jarrett PA PCP - General 11/11/17 Additional Source Comments The information contained in this document represents components of the legal health record. It is not the complete legal health record.[facility]
--- OUTSIDE RECORDS SUMMARY | 2024-11-07 17:38 | XMS_ITS | Encounter Summary ---
Author Organization [facility] Address [address] [place] [address] Phone Care Team Providers Care Grease Monkey Name Role Phone Alec Jarrett Primary Care Provid er Reason for Referral * MRI/CAT Scan - Closed Specialty Diagnoses / Procedures Referred By Johan [email or web address] Referred To Contact Radiology Diagnoses Arm numbness Procedures MRI Cervical Spine Alec Jarrett PA Phone: tel: fax: Referral ID Status Reason Start Date Expiration Date Visits Re quested Visits Authorized [id number] Closed 08/25/2018 10/25/2018 1 1 Encounter Details Date Type Department Care Team (Latest Contact Info) Description 08/25/2018 Transcribe Orders Virtual Department [address] [place] [address] Alec Jarrett PA [address] [place] [address] Arm numbness (Primary Dx) Social History Tobacco Use Types [...] documented as of this encounter Results * MRI CERVICAL SPINE (BONE) WITHOUT CONTRAST (09/04/2018 2:49 PM EDT) Anatomical Region Laterality Modality C-spine Magnetic Resonan ce 09/04/2018 5:46 PM EDT Impressions 09/04/2018 6:01 PM EDT Multilevel degenerative changes including right C4, right C5, bilateral C6 and bilateral C7 neural foraminal narrowing. There is also flattening of the thecal sac with effacement of the CSF around the cord. The neck is a dynamic structure and clinical consequences may be minimized in the neutral position utilized for the examination. Clinical correlation is recommended to determine which of these findings may be associated with the patient's symptoms. POS - [facility] Narrative 09/04/2018 6:01 PM EDT HISTORY: - ARM NUMBNESS [SIGN/SX] [facility]ECK [facility] TECHNIQUE: Exam performed on a 1.5 Suzan high-field MRI scanner. Sagittal T1, T2 and STIR, axial T2* gradient echo and 3-D bright fluid sequences were obtained. COMPARISON: None. FINDINGS: There is straightening of the cervical lordosis. C1-2: There is no spinal canal or neural foraminal stenosis. C2-3: There is no spinal canal or neural foraminal stenosis. C3-4: There is no spinal canal stenosis. There is mild uncovertebral joint hypertrophy. There is slight narrowing of the right C4 neural foramen. The left C4 neural foramen is patent.. C4-5: There is mild osteophytic spurring. There is minimal narrowing of the right C5 neural foramen. The left C5 neural foramen is patent. C5-6: There is disc space narrowing and osteophytic spurring. There is mild narrowing of the C6 neural foramina. There is flattening of the ventral margin of the thecal sac with effacement of the CSF anterior to the cord. C6-7: There is broad osteophytic spurring that indents the ventral margin of the thecal sac and effaces the CSF anterior to the cord. There is bilateral C7 neural foraminal narrowing. C7-T1: There is no spinal canal or neural foraminal stenosis. T1-2: There is no spinal canal or neural foraminal stenosis. The examination is tailored to the spine and does not yield diagnostic imaging of the neck soft tissue structures. Procedure Note Jai Choi MD - 09/04/2018 HISTORY: - ARM NUMBNESS [SIGN/SX] NECK PAIN AFTER [facility] IN [facility] DECAD[facility] AGO. TECHNIQUE: Exam performed on a 1.5 Suzan high-field MRI scanner. SagittalT1, T2 and STIR, axial T2* gradient echo and 3-D bright fluid sequenceswere obtained. COMPARISON: None. FINDINGS: There is straightening of the cervical lordosis. C1-2: There is no spinal canal or neural foraminal stenosis. C2-3: There is no spinal canal or neural foraminal stenosis. C3-4: There is no spinal canal stenosis. There is mild uncovertebral jointhypertrophy. There is slight narrowing of the right C4 neural foramen. Theleft C4 neural foramen is patent.. C4-5: There is mild osteophytic spurring. There is minimal narrowing ofthe right C5 neural foramen. The left C5 neural foramen is patent. C5-6: There is disc space narrowing and osteophytic spurring. There ismild narrowing of the C6 neural foramina. There is flattening of theventral margin of the thecal sac with effacement of the CSF anterior tothe cord. C6-7: There is broad osteophytic spurring that indents the ventral marginof the thecal sac and effaces the CSF anterior to the cord. There isbilateral C7 neural foraminal narrowing. C7-T1: There is no spinal canal or neural foraminal stenosis. T1-2: There is no spinal canal or neural foraminal stenosis. The examination is tailored to the spine and does not yield diagnosticimaging of the neck soft tissue structures. IMPRESSION: Multilevel degenerative changes including right C4, right C5, bilateral C6and bilateral C7 neural foraminal narrowing. There is also flattening ofthe thecal sac with effacement of the CSF around the cord. The neck is adynamic structure and clinical consequences may be minimized in theneutral position utilized for the examination. Clinical correlation isrecommended to determine which of these findings may be associated withthe patient's symptoms. POS - [facility] Fi nal Result documented in this encounter Visit Diagnoses Diagnosis Arm numbness- Primary Disturbance of skin sensation Arm numbness Disturbance of skin sensation documented in this encounter Additional Health Concerns Infection Onset Date Last Indicated Resolved Time CoV-Risk Comment:COVID-19 test pending 07/04/2019 07/04/2019 07/18/2019 1:24 AM EDT documented as of this encounter Care Teams Grease Monkey Relationship Specialty Start Date End Date Alec Jarrett PA PCP - General 11/11/17 documented as of this encounter Additional Source Comments The information contained in this document represents components of the legal health record. It is not the complete legal health record.[facility]
--- OUTSIDE RECORDS SUMMARY | 2024-11-07 17:38 | XMS_ITS | Encounter Summary ---
Author Organization [facility] Address [address] [facility] [address] [place] [address] Phone Care Team Providers Care Special Projects Coordinator Name Role Phone Alec Jarrett Primary Care Provid er Encounter Details Date Type Department Care Team (Late st Contact Info) Description 08/25/2018 Procedure Pass [facility], [address] [address] Social History Tobacco Use Types Packs/Day Years Used Date Smoking Tobacco: Never Assessed Comments No Sex and Gender Information Value Date Recorded Sex Assigned at Not on file Legal Sex Female 9:43 PM EDT Gender Identity Not on file Sexual Orientation Not on file documented as of this encounter Plan of Treatment Not on file documented as of this encounter Visit Diagnoses Not on filedocumented in this encounter Additional Health Concerns Infection Onset Date Last Indicated Resolved Time CoV-Risk Comment:COVID-19 test pending 07/04/2019 07/04/2019 07/18/2019 1:24 AM EDT documented as of this encounter Care Teams Special Projects Coordinator Relationship Specialty Start Date End Date Alec Jarrett PA PCP - General 11/11/17 documented as of this encounter Additional Source Comments The information contained in this document represents components of the legal health record. It is not the complete legal health record.[facility]
--- OUTSIDE RECORDS SUMMARY | 2024-11-07 17:38 | XMS_ITS | Encounter Summary ---
Author Organization [facility] Address [address] [facility] [address] [place] [address] Phone Care Team Providers Care Reimbursement Specialist Name Role Phone Alec Jarrett Primary Care Provid er Encounter Details Date Type Department Care Team (Late st Contact Info) Description 02/10/2018 Transcribe Orders [facility] [address] [place] [address] [place] [address] Curly Topete MD [address] [place] [phone] [email or web address] Pre-employment health screening examination (Primary Dx) Social [...] documented as of this encounter Results * Rubella antibody, IgG (02/10/2018 12:31 PM EST) Rubella Ab, IgG Positive Positive [facility] Blood (Blood) 02/10/2018 12: 31 PM EST 02/10/2018 12:36 PM EST us Curly Topete MD NON CULTURE MICROBIOLOGY Fin al Result [facility] [address] [place] [address] * Mumps antibody, IgG (02/10/2018 12:31 PM EST) MUMPS IGG AB Positive Positive [facility] Blood (Blood) 02/10/2018 12: 31 PM EST 02/10/2018 12:36 PM EST us Curly Topete MD NON CULTURE MICROBIOLOGY Fin al Result Performing Organization Address [facility] Phone Number [address] [address] * Measles antibody, IgG (02/10/2018 12:31 PM EST) RUBEOLA IGG Positive Positive [facility] Blood (Blood) 02/10/2018 12: 31 PM EST 02/10/2018 12:36 PM EST us Curly Topete MD NON CULTURE MICROBIOLOGY Fin al Result Performing Organization Address [facility] Phone Number [address] [address] * Hepatitis B surface antibody (02/10/2018 12:31 PM EST) HBV SURFACE ANTIBODY Negative [facility] Comment: Unvaccinated: Negative Vaccinated: Positive Blood 02/10/2018 12:3 1 PM EST 02/10/2018 12:36 PM EST us Curly Topete MD LAB BLOOD ORDERABLES Final R esult Performing Organization Address [facility] de Phone Number [address] [address] documented in this encounter Visit Diagnoses Diagnosis Pre-employment health screening examination- Primary Health examination of defined subpopulation documented in this encounter Additional Health Concerns Infection Onset Date Last Indicated Resolved Time CoV-Risk Comment:COVID-19 test pending 07/04/2019 07/04/2019 07/18/2019 1:24 AM EDT documented as of this encounter Care Teams Reimbursement Specialist Relationship Specialty Start Date End Date Alec Jarrett PA PCP - General 11/11/17 documented as of this encounter Additional Source Comments The information contained in this document represents components of the legal health record. It is not the complete legal health record.[facility]
== END 2024-11-07 14:45 | disposition home or self-care (01) ==
LOC: HO.HCS 14:23
PROVIDERS: PCP Physician Assistant; Referring Provider Internal Medicine; Visit Provider Internal Medicine
DX: I48.0 Paroxysmal atrial fibrillation (principal); I47.10 Supraventricular tachycardia, unspecified; I47.29 Other ventricular tachycardia
CPT/HCPCS: 99214; G2211

== ENCOUNTER → 2024-11-07 14:22 | Outpatient (BNVA) | payer OTHER, SELFPAY | PROVIDERS: PCP Physician Assistant; Visit Provider Internal Medicine | DX: I48.0 Paroxysmal atrial fibrillation (principal); I47.10 Supraventricular tachycardia, unspecified; I47.29 Other ventricular tachycardia | CPT/HCPCS: 99212 ==

== ENCOUNTER 2025-01-26 13:36 | Outpatient (AMB) | payer OTHER, SELFPAY ==
[2025-01-26 13:37] VITALS: BP 124/61; PULSE 71; BMI 34.6
--- NOTE | 2025-01-26 13:37 | A.OFFVIS_ITS ---
Vital Signs 3 01/26/25 13:37 Height 5 ft 9 in Weight 234 lb BMI 34.6 BP 124/61 Blood Pressure Location Rt brachial Position Sitting Pulse 71 Intake Visit Reasons: benign neoplasm of skin of scalp and neck Intake Note: Patient referred by PCP Dr. Jarrett @ CT for assessment of neoplasm on scalp. Patient c/o: itchy, painful when brushes area. enalrging. No hx of skin CA. 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 She desires excision. She denies any history of trauma or instrumentation to the region. [facility]LY [facility], [facility] Medical History Lung cancer Hypothyroidism Paroxysmal A-fib Generalized anxiety disorder Surgical History History of lobectomy of lung Family History Father Heart attack Mother New onset a-fib Maternal Uncle Family history of heart attack Social History (Updated 01/26/25 @ 13:44 by GELA Parisi) Alcohol intake: current Alcohol intake frequency: holidays/special occasions only Patient Tobacco Use Status: Former Tobacco user Tobacco use type: Cigarette Cigarette Packs Per Day: 3 Cigarettes Per Day: 10 Review of Systems Const All systems reviewed & are unremarkable except as noted in HPI and below Physical Exam Vital Signs: Last Vital Signs Pulse 71 01/26/25 13:37 BP 124/61 01/26/25 13:37 BMI result Body Mass Index 34.6 Const General: cooperative, healthy appearing and comfortable Orientation/consciousness: oriented to person, oriented to place and oriented to time HEENT Other: In the right parietal region she exhibits an approximate 3 cm cystic structure consistent with a pilar cyst. There was no skin change no erythema edema or discharge. Head: Yes normal to inspection Head images: 2 1. 3cm pilar cyst Neck Neck: Yes normal visual inspection Chest Chest palpation & inspection: normal inspection of the chest Resp Effort & Inspection: normal respiratory effort and able to speak in complete sentences Cardio Rate: regular rate Rhythm: regular rhythm GI Inspection: Yes normal to inspection Back/Spine/Pelvis Cervical Spine: normal cervical lordosis Thoracic/Lumbar Spine: thoracic and lumbar spine normal to inspection Neuro General: oriented to person, oriented to place and oriented to time Cranial nerves: Yes CN's II-XII intact bilaterally Assessment & Plan Assessment & Plan (1) Pilar cyst: Code(s): L72.11 - Pilar cyst Category: Medical Plan: I told the patient I felt excisional biopsy was reasonable. I reviewed with them the nature of excisional biopsy of her pilar cyst and also reviewed with her the risks are involved. These include but are not limited to the risk of bleeding the risks infection risk of recurrence the risk of scarring the risk of chronic pain and the risk of hair loss. She indicated that she understood. She told me that she accepted the risks and still wished to proceed with surgery. Coding Level of Care Code New Pt Level 3 (19523) Diagnoses Pilar cyst L72.11 Time Spent (min) 30 Comment Patient visit record review and coordination of care time
--- OUTSIDE RECORDS SUMMARY | 2025-01-26 19:02 | XMS_ITS | Encounter Summary ---
Author Organization [facility] Address [address] [facility] [address] [place] [address] Phone Care Team Providers Care Agile Scrum Master Name Role Phone Alec Jarrett Primary Care Provid er Encounter Details Date Type Department Care Team (Late st Contact Info) Description 08/25/2018 Procedure Pass [facility], [address] [address] Social History Tobacco Use Types Packs/Day Years [...] documented as of this encounter Care Teams Agile Scrum Master Relationship Specialty Start Date End Date Alec Jarrett PA PCP - General 11/11/17 documented as of this encounter Additional Source Comments The information contained in this document represents components of the legal health record. It is not the complete legal health record.[facility]
--- OUTSIDE RECORDS SUMMARY | 2025-01-26 19:02 | XMS_ITS | Encounter Summary ---
Author Organization [facility] Address [address] [facility] [address] [place] [address] Phone Care Team Providers Care Business Support Professional Name Role Phone Alec Jarrett Primary Care Provid er Encounter Details Date Type Department Care Team (Late st Contact Info) Description 02/10/2018 Transcribe Orders [facility] [address] [place] [address] Curly Topete MD [address] [place] [phone] [email or web address] Pre-employment health screening examination (Primary Dx) Social [...] PM EST) Rubella Ab, IgG Positive Positive [facility] Blood (Blood) 02/10/2018 12: 31 PM EST 02/10/2018 12:36 PM EST us Curly Topete MD LAB BLOOD BKR ORDERABLES Fin al Result [facility] [address] [place] [address] * Mumps antibody, IgG (02/10/2018 12:31 PM EST) MUMPS IGG AB Positive Positive [facility] Blood (Blood) 02/10/2018 12: 31 PM EST 02/10/2018 12:36 PM EST us Curly Topete MD LAB BLOOD BKR ORDERABLES Fin al Result Performing Organization Address [facility] de Phone Number [address] [address] * Measles antibody, IgG (02/10/2018 12:31 PM EST) RUBEOLA IGG Positive Positive [facility] Blood (Blood) 02/10/2018 12: 31 PM EST 02/10/2018 12:36 PM EST us Curly Topete MD LAB BLOOD BKR ORDERABLES Fin al Result Performing Organization Address [facility] de Phone Number [address] [address] * Hepatitis B surface antibody (02/10/2018 12:31 PM EST) HBV SURFACE ANTIBODY Negative [facility] Comment: Unvaccinated: Negative Vaccinated: Positive Blood 02/10/2018 12:3 1 PM EST 02/10/2018 12:36 PM EST Result Radha Topete MD LAB BLOOD BKR ORDERABLES Fin al Result Performing Organization Address [facility] de Phone Number [address] [address] documented in this encounter Visit Diagnoses Diagnosis Pre-employment health screening examination- Primary Health examination of defined subpopulation documented in this encounter Additional Health Concerns Infection Onset Date Last Indicated Resolved Time CoV-Risk Comment:COVID-19 test pending 07/04/2019 07/04/2019 07/18/2019 1:24 AM EDT documented as of this encounter Care Teams Business Support Professional Relationship Specialty Start Date End Date Alec Jarrett PA PCP - General 11/11/17 documented as of this encounter Additional Source Comments The information contained in this document represents components of the legal health record. It is not the complete legal health record.[facility]
--- OUTSIDE RECORDS SUMMARY | 2025-01-26 19:02 | XMS_ITS | Encounter Summary ---
Author Organization [facility] Address [address] [place] [phone] Phone Care Team Providers Care Quality Systems Specialist Name Role Phone Alec Jarrett Primary Care Provid er Encounter Details Date Type Department Care Team (Latest Contact Info) Description 11/11/2017 Transcribe Orders [facility] Phleb Main [address] [place] [address] [id number] Mechelle Arellano ARNP Pre-employment health screening examination [...] 12:59 PM EDT) HBV SURFACE ANTIBODY Negative [facility] Comment: Unvaccinated: Negative Vaccinated: Positive Blood 11/11/2017 12:5 9 PM EDT 11/11/2017 4:06 PM EDT us Mechelle MORTON LAB BLOOD BKR ORDERABLES Fi nal Result [facility] [address] [place] [address] * Measles antibody, IgG (11/11/2017 12:59 PM EDT) RUBEOLA IGG Positive Positive [facility] Blood (Blood) 11/11/2017 12: 59 PM EDT 11/12/2017 10:33 AM EDT us Mechelle VALENZUELAP LAB BLOOD BKR ORDERABLES Fi nal Result Performing Organization Address [facility] Co de Phone Number [address] [address] * Mumps antibody, IgG (11/11/2017 12:59 PM EDT) MUMPS IGG AB Positive Positive [facility] Blood (Blood) 11/11/2017 12: 59 PM EDT 11/12/2017 10:33 AM EDT us Mechelle VALENZUELAP LAB BLOOD BKR ORDERABLES Fi nal Result Performing Organization Address [facility] Co de Phone Number [address] [address] * Rubella antibody, IgG (11/11/2017 12:59 PM EDT) Rubella Ab, IgG Positive Positive [facility] Blood (Blood) 11/11/2017 12: 59 PM EDT 11/12/2017 10:33 AM EDT us Mechelle MORTNO LAB BLOOD BKR ORDERABLES Fi nal Result Performing Organization Address [facility] Co de Phone Number [address] [address] * Varicella-zoster (VZV) antibody, IgG (11/11/2017 12:59 PM EDT) Varicella Ab(s) Positive Positive [facility] Blood (Blood) 11/11/2017 12: 59 PM EDT 11/12/2017 10:33 AM EDT us Mechelle VALENZUELAP LAB BLOOD BKR ORDERABLES Fi nal Result [address] [address] * T spot TB test (11/11/2017 12:59 PM EDT) T SPOT Tuberculosis Negative [facility] Comment:TESTING PERFORMED AT [email or web address] [place] [address] Blood 11/11/2017 12:5 9 PM EDT 11/11/2017 4:06 PM EDT us Mechelle Siegel Arellano [facility] LAB BLOOD ORDERABLES Final Result Performing Organization Address [facility] Co de Phone Number [address] [address] documented in this encounter Visit Diagnoses Diagnosis Pre-employment health screening examination- Primary Health examination of defined subpopulation documented in this encounter Additional Health Concerns Infection Onset Date Last Indicated Resolved Time CoV-Risk Comment:COVID-19 test pending 07/04/2019 07/04/2019 07/18/2019 1:24 AM EDT documented as of this encounter Care Teams Quality Systems Specialist Relationship Specialty Start Date End Date Alec Jarrett PA PCP - General 11/11/17 documented as of this encounter Additional Source Comments The information contained in this document represents components of the legal health record. It is not the complete legal health record.[facility]
--- OUTSIDE RECORDS SUMMARY | 2025-01-26 19:02 | XMS_ITS | Clinical Summary ---
Author Organization [facility] Address [address] [place] [phone] Phone Care Team Providers Care Mat Weaver Name Role Phone Alec Jarrett Primary Care [...] Medical Devices Not on file Insurance [facility] [place] [address] [facility] Care Teams Mat Weaver Relationship Specialty Start Date End Date Alec Jarrett PA PCP - General 11/11/17 Additional Source Comments The information contained in this document represents components of the legal health record. It is not the complete legal health record.[facility]
--- OUTSIDE RECORDS SUMMARY | 2025-01-26 19:02 | XMS_ITS | Encounter Summary ---
Author Organization [facility] Address [address] [place] [phone] Phone Care Team Providers Care Senior Instructor Name Role Phone Alec Jarrett Primary Care Provid er Reason for Referral * MRI/CAT Scan - Closed Specialty Diagnoses / Procedures Referred By Johan swartz Referred To Contact Radiology Diagnoses Arm numbness Procedures MRI Cervical Spine Alec Jarrett PA Phone: tel: fax: Referral ID Status Reason Start Date Expiration Date Visits Re quested Visits Authorized [id number] Closed 08/25/2018 10/25/2018 1 1 Encounter Details Date Type Department Care Team (Latest Contact Info) Description 08/25/2018 Transcribe Orders Virtual Department [address] [place] [address] Alec Jarrett PA [address] [place] [address] Arm numbness (Primary Dx) Social History Tobacco [...] [SIGN/SX] [facility] TECHNIQUE: Exam performed on [...] patient's symptoms. POS - [facility] [place] [facility] [place] Result documented in this encounter Visit Diagnoses Diagnosis Arm numbness- Primary Disturbance of skin sensation Arm numbness Disturbance of skin sensation documented in this encounter Additional Health Concerns Infection Onset Date Last Indicated Resolved Time CoV-Risk Comment:COVID-19 test pending 07/04/2019 07/04/2019 07/18/2019 1:24 AM EDT documented as of this encounter Care Teams Senior Instructor Relationship Specialty Start Date End Date Alec Jarrett PA PCP - General 11/11/17 documented as of this encounter Additional Source Comments The information contained in this document represents components of the legal health record. It is not the complete legal health record.[facility]
== END 2025-01-26 13:54 | disposition home or self-care (01) ==
LOC: HO.HGS 13:37
PROVIDERS: PCP Physician Assistant; Visit Provider Surgery
DX: L72.11 Pilar cyst (principal)
CPT/HCPCS: 99203

== ENCOUNTER → 2025-01-26 13:36 | Outpatient (BNVA) | payer OTHER, SELFPAY | PROVIDERS: PCP Physician Assistant; Visit Provider Surgery | DX: Z01.818 Encounter for other preprocedural examination (principal); L72.11 Pilar cyst | CPT/HCPCS: 99202 ==